=== PATIENT | male | born 1955 | race Caucasian/White ===

== ENCOUNTER 2020-12-18 09:13 | Inpatient (IN) | payer BC, SELFPAY ==
[2020-12-18] VITALS (11 sets, daily range): BP systolic 119–135; BP diastolic 79–93; PULSE 79–94; RESP 14–20; TEMP 36.4–37.1; O2SAT 90–96; BMI 34.0; BMI 33.5
--- NOTE | 2020-12-18 09:28 | EKG12_ITS ---
Test Reason : SOB Blood Pressure : / mmHG Vent. Rate : 084 BPM Atrial Rate : 084 BPM P-R Int : 140 ms QRS Dur : 084 ms QT Int : 384 ms P-R-T Axes : 035 -10 -30 degrees QTc Int : 453 ms Normal sinus rhythm Nonspecific T wave abnormality Abnormal ECG Confirmed by LIAT OZUNA, HAIDER ([id number]), city editor FOSTER JACKSON ([id number]) on 12/20/2020 9:16:13 AM Referred By: ESPINOZA/ANOOP Confirmed By:HAIDER JOSUE MD
--- NOTE | 2020-12-18 09:29 | ED.VIS.DYS ---
HPI History of Present Illness Chief Complaint: Shortness of Breath Narrative Narrative: Patient is on about day 10 of symptoms he was diagnosed with Covid, he started having some difficulty breathing yesterday and it got slightly worse today. He is denying fevers, no lower extremity edema or calf pain. He has no pleuritic component. He has no chest pain or back pain. He has a slight cough which is nonproductive. No upper airway congestion. PFSH PFSH Medical History no medical history Allergy/AdvReac Type Severity Reaction Status Date / Time amoxicillin Allergy Itching Verified 12/18/20 09:16 Social History Smoking Status: Unknown if ever smoked ROS ROS ED ROS Narrative Past medical history: Reviewed and negative Medications: None Social history: Noncontributory Review of systems: All systems negative except as indicated General: No fever. Some generalized weakness. Eyes: No visual changes ENT: No upper airway congestion, normal voice Neck: No neck pain Cardiovascular: No chest pain Respiratory: Dyspnea as in HPI Gastrointestinal: No abdominal pain, nausea vomiting or diarrhea Genitourinary: No dysuria Musculoskeletal: Denies myalgias no difficulty with ambulation Skin: No rash Neurological: No memory loss, confusion or any focal weakness Psych: No recent behavioral changes Hematologic: No easy bleeding or easy bruising EXAM Physical Exam Narrative Exam Narrative: Physical exam General: Patient appears relatively comfortable in bed. Head: Normocephalic, Atraumatic Eyes: Conjunctiva not pale ENT: Moist mucous membranes Neck: Supple, Nontender, No lymphadenopathy Cardiovascular: Regular rate, Regular rhythm Respiratory: No distress, CTA bilaterally. Normal inspiration and expiration. He is speaking in full sentences without any distress. Abdomen: Soft, Nontender, Nondistended Back: Nontender, Normal Inspection. Negative for: CVA tenderness Extremities: Nontender, No edema. No calf pain. Negative Homans Skin: Normal color, No rash Neurological: Alert, Normal Strength, Normal Sensation Psychological: Normal affect Const Vital Signs: 12/18/20 09:14 12/18/20 09:16 12/18/20 09:34 Temperature 97.6 F L 97.6 F L Temperature Source Temporal Temporal Pulse Rate 94 94 Respiratory Rate 20 H 20 H Respiratory Effort Non-Labored Short of Breath Respiratory Depth Normal Respiratory Pattern Normal Blood Pressure 119/86 H 119/86 H Blood Pressure Mean 97 97 Pulse Ox 94 94 Oxygen Delivery Method Room Air Room Air Room Air Oxygen Flow Rate (L/min) 12/18/20 10:45 12/18/20 10:47 Temperature Temperature Source Pulse Rate Respiratory Rate Respiratory Effort Respiratory Depth Respiratory Pattern Blood Pressure Blood Pressure Mean Pulse Ox 90 94 Oxygen Delivery Method Room Air Nasal Cannula Oxygen Flow Rate (L/min) 2 MDM MDM MDM Narrative Medical decision making narrative: Initially patient had a marginal pulse ox when I walked in the room, however I went to reevaluate him his pulse ox is 89%, I placed him on oxygen, I gave him Decadron and I will admit him. Lab Data Labs: Laboratory Results - last 24 hr 12/18/20 12/18/20 09:47 09:47 WBC 4.2 L RBC 3.90 L Hgb 12.1 L Hct 37.0 L MCV 94.9 H MCH 31.0 MCHC 32.7 RDW Std Deviation 51.1 H RDW Coeff of Arthur 14.6 Plt Count 132 L MPV 11.8 Immature Gran % (Auto) 0.500 Neut % (Auto) 79.8 H Lymph % (Auto) 14.0 L [place] % (Auto) 5.5 Eos % (Auto) 0.0 Baso % (Auto) 0.2 Absolute Neuts (auto) 3.4 Absolute Lymphs (auto) 0.59 L Nucleated RBC % 0 Diff Path Review May foll Sodium 131 L Potassium 3.7 Chloride 99 Carbon Dioxide 22.0 Anion Gap 10 BUN 20 H Creatinine 0.95 Estim Creat Clear Calc 77.52 Est GFR (MDRD) Af Amer 103 Est GFR (MDRD) Non-Af 85 BUN/Creatinine Ratio 21.1 H Glucose 122 H Calcium 7.9 L Total Bilirubin 0.70 AST 70 H ALT 55 Alkaline Phosphatase 98 Total Protein 6.6 Albumin 3.0 L Globulin 3.6 Albumin/Globulin Ratio 0.8 L Radiography Diagnostic Testing: Clinical Impression(s) from Imaging Studies Chest X-Ray 12/18/20 10:08 IMPRESSION: Patchy bilateral pulmonary infiltrates worse in the left lung. Electronically Signed: Quinton Fajardo MD at 10:18 EDT , Service support , Discharge Plan Triage Chief Complaint: Shortness of Breath ED Provider: Jhonatan Dasilva Dx/Rx/DC Orders Clinical Impression: COVID, Hypoxia Primary Care Provider: Care Physician,No Primary Referrals: Care Physician,No Primary [Primary Care Provider] -
[2020-12-18] MEDS: dexAMETHasone 4 MG/ML Vial 6 MG IV (09:49)
[2020-12-18 10:02] LABS: Absolute Lymphocyte Count 0.59 X10^3/uL (0.83-4.51); Absolute Neutrophil Count 3.4 X10^3/uL (2.0-7.7); Basophil# 0.01 X10^3/uL; Basophil% 0.2 % (0-1); Hemoglobin 12.1 g/dL (13.0-16.5); Lymphocyte # 0.59 X10^3/ul (0.83-4.51); Mean Corp Hgb Conc 32.7 g/dL (32-36); Mean Corpuscular Volume 94.9 fL (80-94); Mean Platelet Vol. 11.8 fl (6.2-12.0); Monocyte# 0.23 X10^3/uL; Monocyte% 5.5 % (0-10); NRBC Flagged by Analyzer 0 % (0-5); Neutrophil # 3.35 X10^3/uL (2.7-7.7); Neutrophil % 79.8 % (47-70); POSITIVE DIFFERENTIAL YES; Platelet Count 132 K/mm3 (150-450); RBC Distribution Width CV 14.6 % (11.6-14.6); RBC Distribution Width SD 51.1 fl (35.1-43.9); White Blood Count 4.2 K/mm3 (4.4-11.0)
[2020-12-18 10:05] LABS: Differential Indicated SCAN CRITERIA MET
--- NOTE | 2020-12-18 10:08 | RAD_ITS ---
STUDY: X-RAY CHEST REASON FOR EXAM: Male, 65 years old. Shortness of breath. Covid positive. TECHNIQUE: Single AP portable view of the chest. COMPARISON: None. FINDINGS: EKG electrodes are seen. Patchy bilateral pulmonary infiltrates worse in the left lung. There is no demonstrated pleural abnormality. Normal size heart. Normal mediastinum and prerna. Normal visualized pulmonary arteries. There is atherosclerotic tortuosity of the aortic arch and descending thoracic aorta. There are degenerative changes of the visualized thoracic spine. Normal visualized ribs, clavicles, and shoulders. There is no demonstrated abnormality of the visualized soft tissue structures of the upper abdomen. RAD/Chest 1 View (Portable) IMPRESSION: Patchy bilateral pulmonary infiltrates worse in the left lung. Electronically Signed: Quinton Fajardo MD at 10:18 EDT , Service support ,
[2020-12-18 10:15] LABS: ALB/GLOB Ratio 0.8 RATIO (0.9-2.4); AST(SGOT) 70 U/L (15-37); Alanine Aminotransfer ALT/SGPT 55 U/L (16-61); Alkaline Phosphatase 98 U/L (45-117); Anion Gap 10 (5-15); BUN 20 mg/dL (7-18); BUN/Creat Ratio 21.1 RATIO (10-20); Calcium,Total 7.9 mg/dL (8.5-10.1); Chloride 99 mmol/L (98-107); Creatinine, Serum 0.95 mg/dL (0.70-1.30); EST Glomerular Filtration Rate 85 mL/min (>60); Est Glom Filt Rate - Afr Amer 103 mL/min (>60); Estimated Creatinine Clearance 77.52 ml/min; Globulin 3.6 g/dL (2.2-4.2); Glucose 122 mg/dL (74-106); Potassium 3.7 mmol/L (3.5-5.1); Protein, Total 6.6 g/dL (6.4-8.2); Sodium Level 131 mmol/L (136-145)
--- NOTE | 2020-12-18 11:14 | CM.ED ---
SW Note Referral Source: Case Find Referral Reason: No Primary Care Physician (PCP) SW reviewed chart and noted that patient has no PCP. SW provided patient with list of [facility] and [facility] Physician List for reference. No other issues or concerns voiced at this time. SW remains available for any additional needs. Plan: Provided patient with PCP information Chioma FERREIRA
--- NOTE | 2020-12-18 12:03 | HP.PCM.HOS_ITS ---
HPI - General General Date of Admission: 12/18/20 Date of Service: 12/18/20 Chief Complaint: Progressive shortness of breath -ongoing for 10 days HPI Narrative JOSE PEDRO, is a 65 M who presents with above. Patient stated he started jesus ving symptoms about 10 days ago. He lives alone. He denies any fever or chills. He has loss of taste but intact smell. He has a cough which is nonproductive. He has some loose stools; has had only one today. He was diagnosed 2 days ago. PFS Medical History Smoker Medical History no medical history no medical history Home Medications NK 12/18/20 [History Last Taken Unknown] Allergy/AdvReac Type Severity Reaction Status Date / Time amoxicillin Allergy Itching Verified 12/18/20 09:16 Family History (Updated 12/18/20 @ 18:[address] Liliane Soliz MD) Mother Dementia no surgical history Social History (Updated 12/18/20 @ 18:[address] Liliane Soliz MD) household members: none housing: house Smoking Status: Current every day smoker tobacco type: cigars alcohol intake: current alcohol intake frequency: a few times a week Alcohol type: beer substance use type: does not use ROS ROS Narrative Constitutional: Reports: Malaise, Weakness, Fatigue. Denies: Anorexia, Chills, Fever, Night Sweats, Weight Change Eyes: Denies: Blurred vision, Cataracts, Conjunctivae Inflammation, Pain, Redness, Vision Change HEENT: Denies: Difficulty Hearing, Difficulty Swallowing, Head Aches, Hearing Changes, Sinus Congestion, Sinus Drainage Cardiovascular: Denies: Chest Pain, Orthopnea, Palpitations Respiratory: Denies: Cough, Shortness of breath at rest, Sputum production Gastrointestinal: Denies: Abdominal Pain, Nausea, Vomiting Genitourinary: Denies: Dysuria Musculoskeletal: Denies: Joint Pain, Joint stiffness, Joint swelling, Joint Tenderness Skin: Denies: Rash, Wounds Neurological: Denies: Numbness, Tingling, Focal weakness Vital Signs Vital Signs Vital Signs: 12/18/20 09:14 12/18/20 09:16 12/18/20 09:34 Temperature 97.6 F L 97.6 F L Temperature Source Temporal Temporal Pulse Rate 94 94 Respiratory Rate 20 H 20 H Respiratory Effort Non-Labored Short of Breath Respiratory Depth Normal Respiratory Pattern Normal Blood Pressure 119/86 H 119/86 H Blood Pressure Mean 97 97 Pulse Ox 94 94 Oxygen Delivery Method Room Air Room Air Room Air Oxygen Flow Rate (L/min) 12/18/20 10:45 12/18/20 10:47 12/18/20 12:00 Temperature Temperature Source Pulse Rate 81 Respiratory Rate 14 Respiratory Effort Respiratory Depth Respiratory Pattern Blood Pressure 126/83 H Blood Pressure Mean 97 Pulse Ox 90 94 92 Oxygen Delivery Method Room Air Nasal Cannula Room Air Oxygen Flow Rate (L/min) 2 Weight Weight: 104.326 kg Body Mass Index (BMI) 34.0 Physical Exam Narrative Physical exam: General: Alert, Oriented x3, Cooperative, No apparent distress, Well developed, on 2 L of oxygen HEENT: Atraumatic Oral: Moist Mucosa Neck: Supple Lungs: Diminished to auscultation Cardiovascular: HS I+II, regular, no murmurs Abdomen: Bowel Sounds Present, Soft, Non Tender Extremities: No edema Skin: No rashes, No breakdown Neurological: Grossly intact Psych/Mental Status: Appropriate Results Lab / Micro Data Result Diagrams: 12/18/20 09:47 12/18/20 09:47 Labs: Laboratory Results - last 24 hr 12/18/20 09:47: WBC 4.2 L, RBC 3.90 L, Hgb 12.1 L, Hct 37.0 L, MCV 94.9 H, MCH 31.0, MCHC 32.7, RDW Std Deviation 51.1 H, RDW Coeff of Arthur 14.6, Plt Count 132 L, MPV 11.8, Immature Gran % (Auto) 0.500, Neut % (Auto) 79.8 H, Lymph % (Auto) 14.0 L, [place] % (Auto) 5.5, Eos % (Auto) 0.0, Baso % (Auto) 0.2, Absolute Neuts (auto) 3.4, Absolute Lymphs (auto) 0.59 L, Nucleated RBC % 0, Diff Path Review July12/18/20 09:47: Sodium 131 L, Potassium 3.7, Chloride 99, Carbon Dioxide 22.0, Anion Gap 10, BUN 20 H, Creatinine 0.95, Estim Creat Clear Calc 77.52, Est GFR (MDRD) Af Amer 103, Est GFR (MDRD) Non-Af 85, BUN/Creatinine Ratio 21.1 H, Glucose 122 H, Calcium 7.9 L, Total Bilirubin 0.70, AST 70 H, ALT 55, Alkaline Phosphatase 98, Total Protein 6.6, Albumin 3.0 L, Globulin 3.6, Albumin/Globulin Ratio 0.8 L Radiology Impression Chest X-Ray 12/18/20 10:08 IMPRESSION: Patchy bilateral pulmonary infiltrates worse in the left lung. Electronically Signed: Quinton Fajardo MD at 10:18 EDT , Service support , Assessment & Plan Assessment/Plan (1) COVID: (2) Hypoxia: PLAN: 1. Acute hypoxic respiratory insufficiency secondary to acute COVID-19 pneumonia Chest x-ray showed patchy bilateral pulmonary infiltrates, worse in the left lung Symptoms started about 10 days ago Start on IV Decadron in the ED, will continue on p.o. Decadron Would also start patient on remdesivir Encourage use of incentive spirometer 2. Elevated D-dimer, will start on empiric Lovenox We will get CTA of the chest if patient continues to remain stable Charges/Coding Visit Charges Inpatient E&M: 06413 Init Hosp L3
--- NOTE | 2020-12-18 12:03 | PCM.PN.HOSP ---
Objective Data Objective Data Vital Signs: Vital Signs Temp Pulse Resp BP Pulse Ox 97.6 F L 81 14 126/83 H 92 12/18/20 09:16 12/18/20 12:00 12/18/20 12:00 12/18/20 12:00 12/18/20 12:00 Oxygen Flow Rate (L/min) 2 Oxygen Delivery Method Room Air Weight: 104.326 kg Body Mass Index (BMI) 34.0 Lab / Micro Data Result Diagrams: 12/18/20 09:47 12/18/20 09:47 Labs: Laboratory Results - last 24 hr 12/18/20 09:47: WBC 4.2 L, RBC 3.90 L, Hgb 12.1 L, Hct 37.0 L, MCV 94.9 H, MCH 31.0, MCHC 32.7, RDW Std Deviation 51.1 H, RDW Coeff of Arthur 14.6, Plt Count 132 L, MPV 11.8, Immature Gran % (Auto) 0.500, Neut % (Auto) 79.8 H, Lymph % (Auto) 14.0 L, [place] % (Auto) 5.5, Eos % (Auto) 0.0, Baso % (Auto) 0.2, Absolute Neuts (auto) 3.4, Absolute Lymphs (auto) 0.59 L, Nucleated RBC % 0, Diff Path Review July12/18/20 09:47: Sodium 131 L, Potassium 3.7, Chloride 99, Carbon Dioxide 22.0, Anion Gap 10, BUN 20 H, Creatinine 0.95, Estim Creat Clear Calc 77.52, Est GFR (MDRD) Af Amer 103, Est GFR (MDRD) Non-Af 85, BUN/Creatinine Ratio 21.1 H, Glucose 122 H, Calcium 7.9 L, Total Bilirubin 0.70, AST 70 H, ALT 55, Alkaline Phosphatase 98, Total Protein 6.6, Albumin 3.0 L, Globulin 3.6, Albumin/Globulin Ratio 0.8 L Radiography Diagnostic Testing: Radiology Impression Chest X-Ray 12/18/20 10:08 IMPRESSION: Patchy bilateral pulmonary infiltrates worse in the left lung. Electronically Signed: Quinton Fajardo MD at 10:18 EDT , Service support ,
[2020-12-18 13:21] LABS: Pathologist Review Reviewed
--- NOTE | 2020-12-18 13:27 | PCS.PANDOC ---
PANDEMIC DOCUMENTATION INITIATED: Date: 10/23/2020 Time: 190
[2020-12-18 13:41] LABS: BNP,B-Type NATRIURETIC PEPTIDE 23.1 pg/mL (0-100)
[2020-12-18 13:54] LABS: Procalcitonin 0.23 ng/mL (0.00-0.09)
[2020-12-18] MEDS: Enoxaparin 100 MG/ML Syringe SC (23:00)
[2020-12-18] MEDS: guaiFENesin 10 ML UDC (200MG/10ML) 20 ML PO (23:00)
[2020-12-18] MEDS: 0.9% Saline Lock 10 ML Syringe IV (23:00)
[2020-12-19] VITALS (7 sets, daily range): BP systolic 121–125; BP diastolic 69–78; PULSE 76–86; RESP 16–18; TEMP 36.9–37.2; O2SAT 92–94
[2020-12-19] MEDS: Acetaminophen 325 MG Tablet 650 MG PO ×3 (03:08→22:22)
[2020-12-19 06:34] LABS: Absolute Lymphocyte Count 0.86 X10^3/uL (0.83-4.51); Absolute Neutrophil Count 4.4 X10^3/uL (2.0-7.7); Basophil# 0.01 X10^3/uL; Basophil% 0.2 % (0-1); Hematocrit 37.6 % (40-54); Hemoglobin 12.3 g/dL (13.0-16.5); Lymphocyte # 0.86 X10^3/ul (0.83-4.51); Lymphocyte % 15.3 % (19-41); Mean Corp Hgb Conc 32.7 g/dL (32-36); Mean Corpuscular Hgb 31.1 pg (27.0-32.0); Mean Corpuscular Volume 94.9 fL (80-94); Mean Platelet Vol. 11.4 fl (6.2-12.0); Monocyte# 0.28 X10^3/uL; NRBC Flagged by Analyzer 0 % (0-5); Neutrophil # 4.43 X10^3/uL (2.7-7.7); Platelet Count 163 K/mm3 (150-450); RBC Distribution Width CV 14.5 % (11.6-14.6); Red Blood Count 3.96 M/mm3 (4.6-6.2); White Blood Count 5.6 K/mm3 (4.4-11.0)
[2020-12-19 07:03] LABS: ALB/GLOB Ratio 0.8 RATIO (0.9-2.4); AST(SGOT) 81 U/L (15-37); Alanine Aminotransfer ALT/SGPT 67 U/L (16-61); Albumin, Serum 2.8 g/dL (3.2-5.0); Alkaline Phosphatase 97 U/L (45-117); Anion Gap 11 (5-15); BUN 22 mg/dL (7-18); BUN/Creat Ratio 21.8 RATIO (10-20); Calcium,Total 8.1 mg/dL (8.5-10.1); Chloride 97 mmol/L (98-107); Creatinine, Serum 1.01 mg/dL (0.70-1.30); EST Glomerular Filtration Rate 79 mL/min (>60); Est Glom Filt Rate - Afr Amer 95 mL/min (>60); Estimated Creatinine Clearance 72.92 ml/min; Globulin 3.7 g/dL (2.2-4.2); Glucose 123 mg/dL (74-106); Potassium 3.7 mmol/L (3.5-5.1); Protein, Total 6.5 g/dL (6.4-8.2); Sodium Level 132 mmol/L (136-145)
[2020-12-19] MEDS: dexAMETHasone 4 MG Tablet 6 MG PO (08:35)
[2020-12-19] MEDS: Enoxaparin 100 MG/ML Syringe SC ×2 (08:35→22:22)
[2020-12-19] MEDS: 0.9% Saline Lock 10 ML Syringe IV ×3 (08:37→22:23)
[2020-12-19] MEDS: guaiFENesin 10 ML UDC (200MG/10ML) 20 ML PO ×2 (08:55→22:22)
--- NOTE | 2020-12-19 12:10 | CASEMGMT ---
JENNIFER CEVALLOS Assessment: Face to Face with pt for initial transition planning/care coordination assessment. JENNIFER CEVALLOS introduced self and role at [facility], pt voices understanding and consents to assessment. Pt is A/O x4 and answers all questions appropriately at this time. Pt sitting up in chair with O2 on in no distress. Care providers, pharmacy, and demographics verified/updated. Admitting Dx: Resp failure, COVID 19 PCP: Pt had who has retired. Pt states he has not yet obtained a new PCP. Provided him with a pamphlet of local healthcare providers. Specialists:Pt denies Preferred Pharmacy: [facility] Insurance: [employer] Prescription Benefit: yes LW/HPOA: Pt denies having a LW/DPOA and denies need for info regarding AD. LNOK: Jason Meza, son Living Arrangements: Pt lives alone in a single story house with 13 steps to enter without a rail. Pt reports being I in ADL's and denies concerns at home. Transportation: Pt drives self and denies concerns with transportation. DME/HHC/SNF: Pt denies having any DME, hx of HHC or SNF stays. 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 Pt reports drinking two alcohol drinks per week and normally smokes a cigar a day. Pt denies use of street drugs or illegal drugs. Pt reports his mother just passed this last week and the planning is in the works. Notified Gracie KIDD of this. Pt was first tested for COVID at [facility] urgent care. Pt states he has family who can provide him with groceries and supplies. Provided pt with a list of local in network DME providers should he need O2 upon dc, pt has no preference. Pt states no concerns with going home at time of dc. Pt states no further concerns/needs. CM to follow. Advised pt to ask CM if any further question/concerns/needs arise, voices understanding. Pt Goal: Home Plan: Home, follow for O2.
--- NOTE | 2020-12-19 12:15 | PCM.PN.HOSP ---
Subjective Subjective Follow-up on hypoxia/acute COVID-19 pneumonia: Patient was seen and examined. His oxygen requirements has worsened. He is currently on 5 L of oxygen. He denied any diarrhea. Objective Data Objective Data Vital Signs: Vital Signs Temp Pulse Resp BP Pulse Ox 98.5 F 80 16 121/69 H 92 12/19/20 08:33 12/19/20 08:33 12/19/20 08:33 12/19/20 08:33 12/19/20 09:45 Oxygen Flow Rate (L/min) 5 Oxygen Delivery Method Nasal Cannula Weight: 103 kg Body Mass Index (BMI) 33.5 Intake & Output: Intake and Output for Last 24 Hours 12/17/20 12/18/20 12/19/20 23:59 23:59 23:59 Intake Total 650 / 650 Balance 650 / 650 Lab / Micro Data Result Diagrams: 12/19/20 06:08 12/19/20 06:08 Labs: Laboratory Results - last 24 hr 12/18/20 09:47: Diff Path Review Reviewed 12/18/20 09:47: D-Dimer Quant (PE/DVT) 0.80 H* 12/18/20 09:47: B-Natriuretic Peptide 23.1 12/18/20 09:47: Procalcitonin 0.23 H 12/19/20 06:08: WBC 5.6, RBC 3.96 L, Hgb 12.3 L, Hct 37.6 L, MCV 94.9 H, MCH 31.1, MCHC 32.7, RDW Std Deviation 51.0 H, RDW Coeff of Arthur 14.5, Plt Count 163, MPV 11.4, Immature Gran % (Auto) 0.500, Neut % (Auto) 79.0 H, Lymph % (Auto) 15.3 L, [place] % (Auto) 5.0, Eos % (Auto) 0.0, Baso % (Auto) 0.2, Absolute Neuts (auto) 4.4, Absolute Lymphs (auto) 0.86, Nucleated RBC % 0 12/19/20 06:08: Sodium 132 L, Potassium 3.7, Chloride 97 L, Carbon Dioxide 24.0, Anion Gap 11, BUN 22 H, Creatinine 1.01, Estim Creat Clear Calc 72.92, Est GFR (MDRD) Af Amer 95, Est GFR (MDRD) Non-Af 79, BUN/Creatinine Ratio 21.8 H, Glucose 123 H, Calcium 8.1 L, Total Bilirubin 0.50, AST 81 H, ALT 67 H, Alkaline Phosphatase 97, Total Protein 6.5, Albumin 2.8 L, Globulin 3.7, Albumin/Globulin Ratio 0.8 L Micro: Microbiology 12/18/20 18:00 Urine, Clean Catch Legionella Antigen - Final 12/18/20 18:00 Urine, Clean Catch Streptococcus pneumoniae Antigen (M - Final 12/18/20 18:00 Nasal Secretion SARS-CoV-2 Antigen (Rapid) - Final 12/18/20 15:44 Mucosa - Nasopharyngeal Respiratory Panel (PCR) - Final Physical Exam Narrative Physical exam: General: Alert, Oriented x3, Cooperative, No apparent distress, Well developed, on 5 L of oxygen HEENT: Atraumatic Oral: Moist Mucosa Neck: Supple Lungs: Diminished to auscultation Cardiovascular: HS I+II, regular, no murmurs Abdomen: Bowel Sounds Present, Soft, Non Tender Extremities: No edema Assessment & Plan Assessment/Plan (1) COVID: (2) Hypoxia: PLAN: 1. Acute hypoxic respiratory insufficiency secondary to acute COVID-19 pneumonia, slightly worsening Chest x-ray showed patchy bilateral pulmonary infiltrates, worse in the left lung Symptoms started about 10 days ago Continue on Decadron and remdesivir Encourage use of incentive spirometer 2. Elevated D-dimer, continue on empiric Lovenox W get CTA of the chest if patient continues to remain stable Charges/Coding Visit Charges Inpatient E&M: 48247 Subs Hosp L3
[2020-12-19] MEDS: Furosemide 40 MG/4 ML Vial IV (14:39)
--- NOTE | 2020-12-19 16:04 | CASEMGMT ---
Social Work Note SW aware that pt's mother recently last week. SW will attempt to meet with pt tomorrow to provide support. Lexis Bar HOLISTIC PULSER, CONCRETE BLOCK MOLDER
[2020-12-20] VITALS (8 sets, daily range): BP systolic 112–145; BP diastolic 74–82; PULSE 69–77; RESP 18–20; TEMP 36.5–36.9; O2SAT 92–95
[2020-12-20] MEDS: Acetaminophen 325 MG Tablet 650 MG PO ×2 (08:10→21:51)
[2020-12-20] MEDS: dexAMETHasone 4 MG Tablet 6 MG PO (08:10)
--- NOTE | 2020-12-20 11:42 | CASEMGMT ---
Social Work Note SW in to speak with pt. SW introduced self and role at [facility]. Pt confirms that his mother recently , states the is Friday. Pt states that his mother had Alzheimer, states he is handling her ok. SW offered support to pt. Pt states that he has a supportive family. SW offered to provide pt with bereavement/grief counseling resources and pt denied. Pt denied additional needs or concerns at this time. Lexis Bar WOOD TECHNOLOGIST, TABLET MAKING MACHINE OPERATOR
[2020-12-20] MEDS: Enoxaparin 100 MG/ML Syringe SC ×2 (11:52→21:52)
--- NOTE | 2020-12-20 12:26 | PCM.PN.HOSP ---
Subjective Subjective Follow-up on hypoxia/acute COVID-19 pneumonia: Patient was seen and examined. Denied any new complaint. He remains on 5 L of oxygen. Objective Data Objective Data Vital Signs: Vital Signs Temp Pulse Resp BP Pulse Ox 98.1 F 69 18 112/74 94 12/20/20 08:14 12/20/20 11:59 12/20/20 08:14 12/20/20 08:14 12/20/20 11:59 Oxygen Flow Rate (L/min) 5 Oxygen Delivery Method Nasal Cannula Weight: 102.2 kg Body Mass Index (BMI) 33.5 Intake & Output: Intake and Output for Last 24 Hours 12/18/20 12/19/20 12/20/20 23:59 23:59 23:59 Intake Total 650 / 850 900 / 900 Balance 650 / 850 900 / 900 Lab / Micro Data Result Diagrams: 12/19/20 06:08 12/19/20 06:08 Micro: Microbiology 12/18/20 18:00 Urine, Clean Catch Legionella Antigen - Final 12/18/20 18:00 Urine, Clean Catch Streptococcus pneumoniae Antigen (M - Final 12/18/20 18:00 Nasal Secretion SARS-CoV-2 Antigen (Rapid) - Final 12/18/20 15:44 Mucosa - Nasopharyngeal Respiratory Panel (PCR) - Final Physical Exam Narrative Physical exam: General: Alert, Oriented x3, Cooperative, No apparent distress, Well developed, on 5 L of oxygen HEENT: Atraumatic Oral: Moist Mucosa Neck: Supple Lungs: Diminished to auscultation Cardiovascular: HS I+II, regular, no murmurs Abdomen: Bowel Sounds Present, Soft, Non Tender Extremities: No edema Assessment & Plan Assessment/Plan (1) COVID: (2) Hypoxia: PLAN: 1. Acute hypoxic respiratory insufficiency secondary to acute COVID-19 pneumonia, slightly worsening Chest x-ray showed patchy bilateral pulmonary infiltrates, worse in the left lung Symptoms started about 10 days ago Continue on Decadron and remdesivir Encourage use of incentive spirometer 2. Elevated D-dimer, high suspicion for acute PE, continue on empiric Lovenox Will get CTA of chest Charges/Coding Visit Charges Inpatient E&M: 93690 Subs Hosp L2
--- NOTE | 2020-12-20 14:05 | CT_ITS ---
STUDY: CTA CHEST REASON FOR EXAM: Male, 65 years old. Elevated d-dimer. 10 day history of shortness of breath. RADIATION DOSAGE (If Supplied By Facility): CTDIvol = ( 13 ) mGy, DLP = ( 431.66 ) mGycm TECHNIQUE: The examination was performed with the intravenous administration of IV 100mL Isovue-370. Post-processing of the angiographic images was performed, with multiplanar reformation and 3D reconstruction. Individualized dose optimization techniques were used for this CT. COMPARISON: Comparison is made with prior chest radiograph dated 12/18/2020. FINDINGS: Normal enhancement of the main pulmonary artery and right and left pulmonary arteries. Normal enhancement of the bilateral peripheral pulmonary arteries. There is no demonstrated pulmonary embolism. Normal thoracic aorta and visualized great vessels. There is no demonstrated aortic dissection. Normal heart and pericardium. There are visualized mediastinal lymph nodes, which are within normal size limits, and with normal morphology. Normal hilar regions. Normal visualized trachea and bronchi. The lungs are well expanded. Bilateral pulmonary infiltrates worse in the right hemithorax. Normal pleura. Normal chest wall structures. There are degenerative changes of thoracic spine. Small hiatal hernia. CT/CTA Chest W/WO Contrast IMPRESSION: Diffuse bilateral pulmonary infiltrates worse in the right hemithorax. No evidence of pulmonary embolism. Electronically Signed: Quinton Fajardo MD at 15:09 EDT , Service support ,
[2020-12-20] MEDS: 0.9% Saline Lock 10 ML Syringe IV (21:52)
[2020-12-20] MEDS: Mag Hydrox/Al Hydrox/Simeth 30 ML UDC PO (21:52)
[2020-12-21 03:42] VITALS: BP 113/72; PULSE 77; RESP 20; TEMP 36.5; O2SAT 92
[2020-12-21 03:44] VITALS: O2SAT 92
[2020-12-21 07:46] LABS: Absolute Lymphocyte Count 0.84 X10^3/uL (0.83-4.51); Absolute Neutrophil Count 4.8 X10^3/uL (2.0-7.7); Hematocrit 40.7 % (40-54); Hemoglobin 12.9 g/dL (13.0-16.5); Lymphocyte # 0.84 X10^3/ul (0.83-4.51); Lymphocyte % 13.9 % (19-41); Mean Corp Hgb Conc 31.7 g/dL (32-36); Mean Corpuscular Hgb 31.1 pg (27.0-32.0); Mean Corpuscular Volume 98.1 fL (80-94); Mean Platelet Vol. 10.7 fl (6.2-12.0); Monocyte# 0.33 X10^3/uL; Monocyte% 5.4 % (0-10); NRBC Flagged by Analyzer 0 % (0-5); Neutrophil # 4.83 X10^3/uL (2.7-7.7); Neutrophil % 79.7 % (47-70); POSITIVE MORPHOLOGY YES; Platelet Count 242 K/mm3 (150-450); RBC Distribution Width CV 14.8 % (11.6-14.6); RBC Distribution Width SD 53.8 fl (35.1-43.9); Red Blood Count 4.15 M/mm3 (4.6-6.2); White Blood Count 6.1 K/mm3 (4.4-11.0)
[2020-12-21 07:50] LABS: Differential Indicated SCAN CRITERIA MET
[2020-12-21 08:08] LABS: ALB/GLOB Ratio 0.7 RATIO (0.9-2.4); AST(SGOT) 80 U/L (15-37); Alanine Aminotransfer ALT/SGPT 118 U/L (16-61); Albumin, Serum 2.7 g/dL (3.2-5.0); Alkaline Phosphatase 141 U/L (45-117); Anion Gap 7 (5-15); BUN 25 mg/dL (7-18); BUN/Creat Ratio 30.7 RATIO (10-20); Calcium,Total 8.5 mg/dL (8.5-10.1); Chloride 101 mmol/L (98-107); Creatinine, Serum 0.81 mg/dL (0.70-1.30); EST Glomerular Filtration Rate 101 mL/min (>60); Est Glom Filt Rate - Afr Amer 122 mL/min (>60); Estimated Creatinine Clearance 90.92 ml/min; Globulin 3.9 g/dL (2.2-4.2); Glucose 116 mg/dL (74-106); Potassium 4.4 mmol/L (3.5-5.1); Protein, Total 6.6 g/dL (6.4-8.2); Sodium Level 136 mmol/L (136-145)
[2020-12-21 08:19] VITALS: BP 115/81; PULSE 75; RESP 20; TEMP 36.4; O2SAT 94
[2020-12-21] MEDS: dexAMETHasone 4 MG Tablet 6 MG PO (08:23)
[2020-12-21 08:25] LABS: Atypical Lymphocyte RARE %
[2020-12-21] MEDS: Enoxaparin 100 MG/ML Syringe SC (11:21)
[2020-12-21] MEDS: Acetaminophen 325 MG Tablet 650 MG PO ×2 (11:22→20:34)
[2020-12-21] MEDS: Furosemide 40 MG/4 ML Vial IV (12:35)
[2020-12-21] MEDS: 0.9% Saline Lock 10 ML Syringe IV (12:36)
--- NOTE | 2020-12-21 13:37 | PN.HOSP_ITS ---
Subjective Subjective Patient was seen and examined. He is currently on 7 L of oxygen. Denies any fever or chills. Objective Data Objective Data Vital Signs: Vital Signs Temp Pulse Resp BP Pulse Ox 97.6 F L 75 20 H 115/81 H 94 12/21/20 08:19 12/21/20 08:19 12/21/20 08:19 12/21/20 08:19 12/21/20 08:19 Oxygen Flow Rate (L/min) 7 Oxygen Delivery Method Nasal Cannula Weight: 101.2 kg Body Mass Index (BMI) 33.5 Intake & Output: Intake and Output for Last 24 Hours 12/19/20 12/20/20 12/21/20 23:59 23:59 23:59 Intake Total 650 / 850 1650 / 1950 850 / 850 Balance 650 / 850 1650 / 1950 850 / 850 Lab / Micro Data Result Diagrams: 12/21/20 07:05 12/21/20 07:05 Labs: Laboratory Results - last 24 hr 12/21/20 07:05: WBC 6.1, RBC 4.15 L, Hgb 12.9 L, Hct 40.7, MCV 98.1 H, MCH 31.1, MCHC 31.7 L, RDW Std Deviation 53.8 H, RDW Coeff of Arthur 14.8 H, Plt Count 242, MPV 10.7, Immature Gran % (Auto) 1.000 H, Neut % (Auto) 79.7 H, Lymph % (Auto) 13.9 L, [place] % (Auto) 5.4, Eos % (Auto) 0.0, Baso % (Auto) 0.0, Absolute Neuts (auto) 4.8, Absolute Lymphs (auto) 0.84, Nucleated RBC % 0, Atypical Lymphocytes RARE 12/21/20 07:05: Sodium 136, Potassium 4.4, Chloride 101, Carbon Dioxide 28.0, Anion Gap 7, BUN 25 H, Creatinine 0.81, Estim Creat Clear Calc 90.92, Est GFR (MDRD) Af Amer 122, Est GFR (MDRD) Non-Af 101, BUN/Creatinine Ratio 30.7 H, Glucose 116 H, Calcium 8.5, Total Bilirubin 0.40, AST 80 H, ALT 118 H, Alkaline Phosphatase 141 H, Total Protein 6.6, Albumin 2.7 L, Globulin 3.9, Albumin/Globulin Ratio 0.7 L Micro: Microbiology 12/18/20 18:00 Urine, Clean Catch Legionella Antigen - Final 12/18/20 18:00 Urine, Clean Catch Streptococcus pneumoniae Antigen (M - Final 12/18/20 18:00 Nasal Secretion SARS-CoV-2 Antigen (Rapid) - Final 12/18/20 15:44 Mucosa - Nasopharyngeal Respiratory Panel (PCR) - Final Radiography Diagnostic Testing: Radiology Impression Chest CTA 12/20/20 14:05 IMPRESSION: Diffuse bilateral pulmonary infiltrates worse in the right hemithorax. No evidence of pulmonary embolism. Electronically Signed: Quinton Fajardo MD at 15:09 EDT , Service support , Physical Exam Narrative Physical exam: General: Alert, Oriented x3, Cooperative, No apparent distress, Well developed, on 7 L of oxygen HEENT: Atraumatic Oral: Moist Mucosa Neck: Supple Lungs: Diminished to auscultation Cardiovascular: HS I+II, regular, no murmurs Abdomen: Bowel Sounds Present, Soft, Non Tender Extremities: No edema Assessment & Plan Assessment/Plan (1) COVID: (2) Hypoxia: PLAN: 1. Acute hypoxic respiratory insufficiency secondary to acute COVID-19 pneumonia, slightly worsening Patient is currently on 7 L of oxygen Chest x-ray showed patchy bilateral pulmonary infiltrates, worse in the left lung Symptoms started about 10 days ago Continue on Decadron and remdesivir Encourage use of incentive spirometer 2. Elevated D-dimer, acute PE ruled out, continue on Lovenox 30 mg twice daily Charges/Coding Visit Charges Inpatient E&M: 49121 Subs Hosp L3
[2020-12-21 15:32] VITALS: BP 118/82; PULSE 78; RESP 19; TEMP 36.6; O2SAT 95
[2020-12-21 20:29] VITALS: BP 131/83; PULSE 82; RESP 18; TEMP 36.6; O2SAT 92
[2020-12-21 20:30] VITALS: O2SAT 92
[2020-12-21] MEDS: Enoxaparin 30 MG/0.3 ML Syringe SC (20:34)
[2020-12-21] MEDS: Mag Hydrox/Al Hydrox/Simeth 30 ML UDC PO (20:34)
[2020-12-22] VITALS (14 sets, daily range): BP systolic 115–128; BP diastolic 70–89; PULSE 56–90; RESP 18; TEMP 36.4–36.6; O2SAT 77–99
[2020-12-22] MEDS: guaiFENesin 10 ML UDC (200MG/10ML) 20 ML PO (03:08)
[2020-12-22 06:42] LABS: Absolute Lymphocyte Count 0.94 X10^3/uL (0.83-4.51); Absolute Neutrophil Count 5.2 X10^3/uL (2.0-7.7); Basophil# 0.02 X10^3/uL; Basophil% 0.3 % (0-1); Hematocrit 39.9 % (40-54); Hemoglobin 12.8 g/dL (13.0-16.5); Lymphocyte # 0.94 X10^3/ul (0.83-4.51); Lymphocyte % 13.9 % (19-41); Mean Corp Hgb Conc 32.1 g/dL (32-36); Mean Corpuscular Hgb 30.9 pg (27.0-32.0); Mean Corpuscular Volume 96.4 fL (80-94); Monocyte# 0.51 X10^3/uL; Monocyte% 7.5 % (0-10); NRBC Flagged by Analyzer 0.3 % (0-5); Neutrophil # 5.19 X10^3/uL (2.7-7.7); Neutrophil % 76.8 % (47-70); POSITIVE MORPHOLOGY YES; Platelet Count 260 K/mm3 (150-450); RBC Distribution Width CV 14.6 % (11.6-14.6); RBC Distribution Width SD 52.6 fl (35.1-43.9); Red Blood Count 4.14 M/mm3 (4.6-6.2); White Blood Count 6.8 K/mm3 (4.4-11.0)
[2020-12-22 06:44] LABS: Differential Indicated SCAN CRITERIA MET
--- NOTE | 2020-12-22 06:54 | NURSING ---
pts o2 on monitor was reading 77% on 9L hiflo. this RN went into pts room and pt states that my nose keeps running and I keep taking my oxygen out to blow my nose. pt placed on 10L and pt only came up to 83%. pt educated to use IS and if it is more comfortable, pt can mouth breath and place cannula in mouth. pt acknowledged but did not wish to do that right now. pts o2 bumped to 12L and pt is 89%. pt educated to lay back in bed and try to rest so oxygen levels can come up. pt acknowledged and agreeable at this time. denies additional needs at this time. will cont to monitor
[2020-12-22 07:01] LABS: ALB/GLOB Ratio 0.7 RATIO (0.9-2.4); AST(SGOT) 93 U/L (15-37); Alanine Aminotransfer ALT/SGPT 138 U/L (16-61); Albumin, Serum 2.7 g/dL (3.2-5.0); Alkaline Phosphatase 142 U/L (45-117); Anion Gap 6 (5-15); BUN 29 mg/dL (7-18); Calcium,Total 8.5 mg/dL (8.5-10.1); Chloride 101 mmol/L (98-107); EST Glomerular Filtration Rate 89 mL/min (>60); Est Glom Filt Rate - Afr Amer 108 mL/min (>60); Estimated Creatinine Clearance 81.83 ml/min; Globulin 3.8 g/dL (2.2-4.2); Glucose 127 mg/dL (74-106); Potassium 4.3 mmol/L (3.5-5.1); Protein, Total 6.5 g/dL (6.4-8.2); Sodium Level 134 mmol/L (136-145)
[2020-12-22 07:15] LABS: Atypical Lymphocyte RARE %; Differential Comment SCANNED
[2020-12-22] MEDS: Enoxaparin 30 MG/0.3 ML Syringe SC ×2 (08:45→21:50)
[2020-12-22] MEDS: dexAMETHasone 4 MG Tablet 6 MG PO (08:45)
[2020-12-22] MEDS: Furosemide 40 MG/4 ML Vial IV (11:40)
--- NOTE | 2020-12-22 13:45 | EX.PCM.CONCC ---
Assessment & Plan Assessment/Plan (1) COVID: (2) Acute respiratory failure with hypoxia: PLAN: RECOMMENDATIONS: 1. Diuresis as tolerated 2. Encourage incentive spirometer, Acapella and prone positioning 3. Complete courses of remdesivir (12/22/2020) and Decadron (12/29/2020) therapy 4. Continue prophylactic dose anticoagulation 5. Obtain sputum culture IMPRESSIONS: 1. Acute hypoxic respiratory failure secondary to COVID-19 pneumonia Patient with progression of disease. It is unclear if this is secondary to worsening secondary to another process or COVID-19. Agree with diuretics as ordered. Patient should be continued on Remdesivir and Decadron therapy. Stressed to the patient the importance of using incentive spirometer, Acapella and prone positioning. Continue to use diuretics as necessary to keep volume neutral. Will obtain a sputum culture to rule out other secondary causes. Patient's liver enzymes are slightly elevated, but not enough to discontinue therapy. 2. Obesity/nonvaccinated status/poor primary care Complicates care, management, recovery and prognosis. Patient does not have any past medical history, but it is unclear if this is secondary to a lack of primary care follow-up. Patient's blood glucose is slightly elevated, but this may be secondary to steroid therapy, not diabetes. Patient should likely establish with a PCP on discharge. HPI Consult Data Date of Consult: 12/22/20 HPI Narrative HPI Narrative: JOSE PEDRO is a 65 M, with no reported past medical history, who presents to [facility] on 12/18/2020 secondary to worsening shortness of breath. Patient was reportedly on day 10 of symptoms of COVID-19. Patient denied any recent fever, lower extremity ROCHELLE or calf pain. Patient did not have any chest pain or back pain. Patient did report a cough that was nonproductive and denied any airway congestion. In the ER, patient was afebrile, but tachypneic at 20 breaths/min. Patient was saturating well at 94% on room air initially. Patient did require 2 L nasal cannula by the end of his ER visit. Patient was noted to have a white blood cell count of 4.2, hemoglobin of 12.1, normal renal function, but slightly elevated glucose at 122. Chest x-ray showed bilateral pulmonary infiltrates. Given patient required supplemental oxygen, patient was given Decadron and admitted to the hospital. Patient has done okay over the course of his hospitalization. Patient was initiated on Remdesivir and Decadron therapy. However, over the course of the hospitalization patient has required more supplemental oxygen, so a pulmonary consult was obtained. Patient does report an extensive history of smoking cigars. Patient has never been seen by a equipment cleaner previously. Patient has never had a pulmonary function test, need for supplemental oxygen or inhalers. Patient does not believe that he is significantly worse compared to previous, but is frustrated that he is not getting better. Patient denies any current chest pain, abdominal pain, nausea or vomiting. No lower extremity edema has been reported. Patient has been having polyuria but attributes this to Lasix. Review of systems otherwise negative from a constitutional, HEENT, respiratory, cardiovascular, GI, genitourinary, musculoskeletal, skin, neurologic, psychiatric and hematologic system unless stated above. PFSH Medical History Smoker Medical History no medical history Home Medications NK 12/18/20 [History Last Taken Unknown] Allergy/AdvReac Type Severity Reaction Status Date / Time amoxicillin Allergy Itching Verified 12/18/20 09:16 Family History (Updated 12/18/20 @ 18:[address] Liliane Soliz MD) Mother Dementia Surgical History no surgical history Social History (Updated 12/18/20 @ 18:[address] Liliane Soliz MD) household members: none housing: house Smoking Status: Current every day smoker tobacco type: cigars alcohol intake: current alcohol intake frequency: a few times a week Alcohol type: beer substance use type: does not use ROS ROS Narrative See HPI Physical Exam Const alert and oriented x3 Constitutional Narrative: Mild conversational dyspnea General Appearance: cooperative and well developed HEENT normocephalic, head/scalp atraumatic and moist oral mucous membranes Eyes PERRL and EOMs intact bilaterally Neck full ROM and no lymphadenopathy Chest inspection of chest normal Resp no use of accessory muscles Auscultation: rales bilateral base and diminished lung sounds; Negative for rhonchi or wheezes Percussion: Negative for dullness Cardio regular rate, regular rhythm, S1 normal heart sound, S2 normal heart sound, no murmurs, no rub and no gallops GI normal to inspection, nondistended, normoactive bowel sounds no CVA tenderness Extremity no clubbing, cyanosis or edema Skin no rashes or lesions noted Neuro oriented x3, CN's II-XII intact bilaterally, moves all extremities and no focal motor deficits Psych cooperative and affect normal Lab / Micro Data Result Diagrams: 12/22/20 06:14 12/22/20 06:14 Labs: Laboratory Results - last 24 hr 12/22/20 06:14: WBC 6.8, RBC 4.14 L, Hgb 12.8 L, Hct 39.9 L, MCV 96.4 H, MCH 30.9, MCHC 32.1, RDW Std Deviation 52.6 H, RDW Coeff of Arthur 14.6, Plt Count 260, MPV 10.0, Immature Gran % (Auto) 1.500 H, Neut % (Auto) 76.8 H, Lymph % (Auto) 13.9 L, [place] % (Auto) 7.5, Eos % (Auto) 0.0, Baso % (Auto) 0.3, Absolute Neuts (auto) 5.2, Absolute Lymphs (auto) 0.94, Nucleated RBC % 0.3, Differential Comment SCANNED, Atypical Lymphocytes RARE 12/22/20 06:14: Sodium 134 L, Potassium 4.3, Chloride 101, Carbon Dioxide 27.0, Anion Gap 6, BUN 29 H, Creatinine 0.90, Estim Creat Clear Calc 81.83, Est GFR (MDRD) Af Amer 108, Est GFR (MDRD) Non-Af 89, BUN/Creatinine Ratio 32.0 H, Glucose 127 H, Calcium 8.5, Total Bilirubin 0.70, AST 93 H, ALT 138 H, Alkaline Phosphatase 142 H, Total Protein 6.5, Albumin 2.7 L, Globulin 3.8, Albumin/Globulin Ratio 0.7 L Charges/Coding Visit Charges Inpatient E&M: 59503 Init Hosp L3
--- NOTE | 2020-12-22 17:12 | PN.HOSP_ITS ---
Subjective Subjective Follow-up on hypoxia/acute COVID-19 pneumonia: Patient was seen and examined. Currently on 12 L of oxygen. No other complaints Objective Data Objective Data Vital Signs: Vital Signs Temp Pulse Resp BP Pulse Ox 97.7 F L 77 18 126/89 H 94 12/22/20 16:44 12/22/20 16:44 12/22/20 16:44 12/22/20 16:44 12/22/20 16:44 Oxygen Flow Rate (L/min) 12 Oxygen Delivery Method Nasal Cannula Weight: 100.335 kg Body Mass Index (BMI) 33.5 Intake & Output: Intake and Output for Last 24 Hours 12/20/20 12/21/20 12/22/20 23:59 23:59 23:59 Intake Total 1650 / 1950 1400 / 1400 1200 / 1200 Balance 1650 / 1950 1400 / 1400 1200 / 1200 Lab / Micro Data Result Diagrams: 12/22/20 06:14 12/22/20 06:14 Labs: Laboratory Results - last 24 hr 12/22/20 06:14: WBC 6.8, RBC 4.14 L, Hgb 12.8 L, Hct 39.9 L, MCV 96.4 H, MCH 30.9, MCHC 32.1, RDW Std Deviation 52.6 H, RDW Coeff of Arthur 14.6, Plt Count 260, MPV 10.0, Immature Gran % (Auto) 1.500 H, Neut % (Auto) 76.8 H, Lymph % (Auto) 13.9 L, [place] % (Auto) 7.5, Eos % (Auto) 0.0, Baso % (Auto) 0.3, Absolute Neuts (auto) 5.2, Absolute Lymphs (auto) 0.94, Nucleated RBC % 0.3, Differential Comm ent SCANNED, Atypical Lymphocytes RARE 12/22/20 06:14: Sodium 134 L, Potassium 4.3, Chloride 101, Carbon Dioxide 27.0, Anion Gap 6, BUN 29 H, Creatinine 0.90, Estim Creat Clear Calc 81.83, Est GFR (MDRD) Af Amer 108, Est GFR (MDRD) Non-Af 89, BUN/Creatinine Ratio 32.0 H, Glucose 127 H, Calcium 8.5, Total Bilirubin 0.70, AST 93 H, ALT 138 H, Alkaline Phosphatase 142 H, Total Protein 6.5, Albumin 2.7 L, Globulin 3.8, Albumin/Globulin Ratio 0.7 L Micro: Microbiology 12/18/20 18:00 Urine, Clean Catch Legionella Antigen - Final 12/18/20 18:00 Urine, Clean Catch Streptococcus pneumoniae Antigen (M - Final 12/18/20 18:00 Nasal Secretion SARS-CoV-2 Antigen (Rapid) - Final 12/18/20 15:44 Mucosa - Nasopharyngeal Respiratory Panel (PCR) - Final Physical Exam Narrative Physical exam: General: Alert, Oriented x3, Cooperative, No apparent distress, Well developed, on 12 L of oxygen HEENT: Atraumatic Oral: Moist Mucosa Neck: Supple Lungs: Diminished to auscultation Cardiovascular: HS I+II, regular, no murmurs Abdomen: Bowel Sounds Present, Soft, Non Tender Extremities: No edema Assessment & Plan Assessment/Plan (1) COVID: (2) Hypoxia: PLAN: 1. Acute hypoxic respiratory insufficiency secondary to acute COVID-19 pneumonia, worsening Patient is on 12 L of oxygen Chest x-ray showed patchy bilateral pulmonary infiltrates, worse in the left lung Symptoms started about 10 days ago Continue on Decadron and remdesivir; completed remdesivir today Encourage use of incentive spirometer, proning Pulmonology consulted 2. Elevated D-dimer, acute PE ruled out, continue on Lovenox 30 mg twice daily Charges/Coding Visit Charges Inpatient E&M: 81606 [facility] Hosp L3
[2020-12-22] MEDS: Mag Hydrox/Al Hydrox/Simeth 30 ML UDC PO (21:48)
[2020-12-22] MEDS: Sodium Chloride 0.65% 1 SPRAY SPRAY.BTL 2 SPRAY NASAL (21:56)
[2020-12-23] VITALS (8 sets, daily range): BP systolic 113–125; BP diastolic 69–74; PULSE 53–88; RESP 16–18; TEMP 36.3–36.8; O2SAT 92–100
[2020-12-23] MEDS: guaiFENesin 10 ML UDC (200MG/10ML) 20 ML PO (00:05)
[2020-12-23] MEDS: Acetaminophen 325 MG Tablet 650 MG PO ×2 (00:05→23:27)
--- NOTE | 2020-12-23 07:55 | PCM.PN.INT ---
Assessment & Plan Assessment/Plan (1) COVID: (2) Acute respiratory failure with hypoxia: PLAN: RECOMMENDATIONS: 1. Diuresis as tolerated. Await morning labs 2. Encourage incentive spirometer, Acapella and prone positioning 3. Complete courses of remdesivir (12/22/2020) and Decadron (12/29/2020) therapy 4. Continue prophylactic dose anticoagulation 5. Await sputum culture IMPRESSIONS: 1. Acute hypoxic respiratory failure secondary to COVID-19 pneumonia Patient with progression of disease. It is unclear if this is secondary to worsening secondary to another process or COVID-19. Agree with diuretics as ordered. Patient should be continued on Remdesivir and Decadron therapy. Stressed to the patient the importance of using incentive spirometer, Acapella and prone positioning. Await morning labs and sputum culture. Possible diuretic therapy today. Previously patient's liver enzymes were slightly elevated, but not enough to discontinue therapy. 2. Obesity/nonvaccinated status/poor primary care Complicates care, management, recovery and prognosis. Patient does not have any past medical history, but it is unclear if this is secondary to a lack of primary care follow-up. Patient's blood glucose is slightly elevated, but this may be secondary to steroid therapy, not diabetes. Patient should likely establish with a PCP on discharge. Subjective Subjective Patient did well overnight. No acute issues were reported. Patient did report some decreased sleep secondary to polyuria. Patient continues to have a cough with no real production. Objective Data Objective Data Vital Signs: Vital Signs Temp Pulse Resp BP Pulse Ox 36.8 C 76 18 116/69 94 12/23/20 04:39 12/23/20 04:39 12/23/20 04:39 12/23/20 04:39 12/23/20 04:39 Oxygen Flow Rate (L/min) 12 Oxygen Delivery Method Nasal Cannula Weight: 99.9 kg Body Mass Index (BMI) 33.5 Intake & Output: Intake and Output for Last 24 Hours 12/21/20 12/22/20 12/23/20 23:59 23:59 23:59 Intake Total 1400 / 1400 1450 / 1450 Balance 1400 / 1400 1450 / 1450 Lab / Micro Data Result Diagrams: 12/22/20 06:14 12/22/20 06:14 Micro: Microbiology 12/18/20 18:00 Urine, Clean Catch Legionella Antigen - Final 12/18/20 18:00 Urine, Clean Catch Streptococcus pneumoniae Antigen (M - Final 12/18/20 18:00 Nasal Secretion SARS-CoV-2 Antigen (Rapid) - Final 12/18/20 15:44 Mucosa - Nasopharyngeal Respiratory Panel (PCR) - Final Physical Exam Const alert and oriented x3 Constitutional Narrative: Mild conversational dyspnea General Appearance: cooperative and well developed HEENT normocephalic, head/scalp atraumatic and moist oral mucous membranes Eyes PERRL and EOMs intact bilaterally Neck full ROM and no lymphadenopathy Chest inspection of chest normal Chest: symmetrical chest wall rise; Negative for crepitus Resp no use of accessory muscles Auscultation: diminished lung sounds; Negative for rales, rhonchi or wheezes Percussion: Negative for dullness Cardio regular rate, regular rhythm, S1 normal heart sound, S2 normal heart sound, no murmurs, no rub and no gallops GI normal to inspection, nondistended, normoactive bowel sounds no CVA tenderness Extremity no clubbing, cyanosis or edema Skin no rashes or lesions noted Neuro oriented x3, CN's II-XII intact bilaterally, moves all extremities and no focal motor deficits Psych cooperative and affect normal Charges/Coding Visit Charges Inpatient E&M: 04966 Subs Hosp L3
[2020-12-23] MEDS: dexAMETHasone 4 MG Tablet 6 MG PO (08:56)
[2020-12-23] MEDS: Enoxaparin 30 MG/0.3 ML Syringe SC ×2 (08:57→23:20)
[2020-12-23] MEDS: Sodium Chloride 0.65% 1 SPRAY SPRAY.BTL 2 SPRAY NASAL (08:58)
[2020-12-23 09:11] LABS: Anion Gap 8 (5-15); BUN 29 mg/dL (7-18); BUN/Creat Ratio 31.3 RATIO (10-20); Calcium,Total 8.7 mg/dL (8.5-10.1); Chloride 99 mmol/L (98-107); Creatinine, Serum 0.93 mg/dL (0.70-1.30); EST Glomerular Filtration Rate 87 mL/min (>60); Est Glom Filt Rate - Afr Amer 105 mL/min (>60); Estimated Creatinine Clearance 79.19 ml/min; Glucose 131 mg/dL (74-106); Potassium 4.6 mmol/L (3.5-5.1); Sodium Level 133 mmol/L (136-145)
[2020-12-23] MEDS: Furosemide 40 MG/4 ML Vial IV (12:15)
[2020-12-23] MEDS: 0.9% Saline Lock 10 ML Syringe IV (12:15)
--- NOTE | 2020-12-23 15:27 | PCM.PN.HOSP ---
Subjective Subjective Follow-up on acute respiratory failure/COVID-19 pneumonia Patient was seen and examined. Oxygen requirements appear to be going up. Sputum cultures are pending Objective Data Objective Data Vital Signs: Vital Signs Temp Pulse Resp BP Pulse Ox 97.6 F L 86 18 113/70 93 12/23/20 12:18 12/23/20 12:18 12/23/20 12:18 12/23/20 12:18 12/23/20 13:57 Oxygen Flow Rate (L/min) 13 Oxygen Delivery Method Nasal Cannula Weight: 99.9 kg Body Mass Index (BMI) 33.5 Intake & Output: Intake and Output for Last 24 Hours 12/21/20 12/22/20 12/23/20 23:59 23:59 23:59 Intake Total 1400 / 1400 1450 / 1450 800 / 800 Balance 1400 / 1400 1450 / 1450 800 / 800 Lab / Micro Data Result Diagrams: 12/22/20 06:14 12/23/20 08:31 Labs: Laboratory Results - last 24 hr 12/23/20 08:31: Sodium 133 L, Potassium 4.6, Chloride 99, Carbon Dioxide 26.0, Anion Gap 8, BUN 29 H, Creatinine 0.93, Estim Creat Clear Calc 79.19, Est GFR (MDRD) Af Amer 105, Est GFR (MDRD) Non-Af 87, BUN/Creatinine Ratio 31.3 H, Glucose 131 H, Calcium 8.7 Micro: Microbiology 12/18/20 18:00 Urine, Clean Catch Legionella Antigen - Final 12/18/20 18:00 Urine, Clean Catch Streptococcus pneumoniae Antigen (M - Final 12/18/20 18:00 Nasal Secretion SARS-CoV-2 Antigen (Rapid) - Final 12/18/20 15:44 Mucosa - Nasopharyngeal Respiratory Panel (PCR) - Final Physical Exam Narrative Physical exam: General: Alert, Oriented x3, Cooperative, No apparent distress, Well developed, on 13 L of oxygen HEENT: Atraumatic Oral: Moist Mucosa Neck: Supple Lungs: Diminished to auscultation Cardiovascular: HS I+II, regular, no murmurs Abdomen: Bowel Sounds Present, Soft, Non Tender Extremities: No edema Assessment & Plan Assessment/Plan (1) COVID: (2) Hypoxia: PLAN: 1. Acute hypoxic respiratory insufficiency secondary to acute COVID-19 pneumonia, worsening Patient is on 13 L of oxygen Chest x-ray showed patchy bilateral pulmonary infiltrates, worse in the left lung Symptoms started about 10 days ago Continue on Decadron. Completed remdesivir today Encourage use of incentive spirometer, proning Pulmonology consulted Follow-up on sputum cultures 2. Elevated D-dimer, acute PE ruled out, continue on Lovenox 30 mg twice daily Charges/Coding Visit Charges Inpatient E&M: 60748 Subs Hosp L3
[2020-12-23] MEDS: Mag Hydrox/Al Hydrox/Simeth 30 ML UDC PO ×2 (15:35→23:27)
[2020-12-24] VITALS (11 sets, daily range): BP systolic 104–146; BP diastolic 60–83; PULSE 81–109; RESP 18–23; TEMP 36.3–36.9; O2SAT 90–95
[2020-12-24 07:06] LABS: Absolute Lymphocyte Count 0.98 X10^3/uL (0.83-4.51); Absolute Neutrophil Count 9.7 X10^3/uL (2.0-7.7); Basophil# 0.02 X10^3/uL; Basophil% 0.2 % (0-1); Eosinophil# 0.03 X10^3/uL; Eosinophils% 0.3 % (0-5); Hematocrit 42.8 % (40-54); Lymphocyte # 0.98 X10^3/ul (0.83-4.51); Lymphocyte % 8.6 % (19-41); Mean Corp Hgb Conc 32.7 g/dL (32-36); Mean Corpuscular Hgb 31.4 pg (27.0-32.0); Mean Platelet Vol. 10.1 fl (6.2-12.0); Monocyte# 0.45 X10^3/uL; Monocyte% 3.9 % (0-10); NRBC Flagged by Analyzer 0.2 % (0-5); Neutrophil # 9.67 X10^3/uL (2.7-7.7); Neutrophil % 84.6 % (47-70); Platelet Count 312 K/mm3 (150-450); RBC Distribution Width CV 14.5 % (11.6-14.6); RBC Distribution Width SD 51.7 fl (35.1-43.9); Red Blood Count 4.46 M/mm3 (4.6-6.2); White Blood Count 11.4 K/mm3 (4.4-11.0)
[2020-12-24 07:51] LABS: ALB/GLOB Ratio 0.7 RATIO (0.9-2.4); AST(SGOT) 62 U/L (15-37); Alanine Aminotransfer ALT/SGPT 151 U/L (16-61); Albumin, Serum 2.8 g/dL (3.2-5.0); Alkaline Phosphatase 124 U/L (45-117); Anion Gap 8 (5-15); BUN 31 mg/dL (7-18); Chloride 96 mmol/L (98-107); EST Glomerular Filtration Rate 80 mL/min (>60); Est Glom Filt Rate - Afr Amer 97 mL/min (>60); Estimated Creatinine Clearance 73.65 ml/min; Glucose 133 mg/dL (74-106); Potassium 4.5 mmol/L (3.5-5.1); Protein, Total 6.8 g/dL (6.4-8.2); Sodium Level 133 mmol/L (136-145)
--- NOTE | 2020-12-24 08:06 | PCM.PN.INT ---
Assessment & Plan Assessment/Plan (1) COVID: (2) Acute respiratory failure with hypoxia: PLAN: RECOMMENDATIONS: 1. Diuresis as tolerated. Await morning labs 2. Encourage incentive spirometer, Acapella and prone positioning 3. Completed course of remdesivir (12/22/2020). Continue Decadron (12/29/2020) therapy 4. Continue prophylactic dose anticoagulation 5. Await sputum culture IMPRESSIONS: 1. Acute hypoxic respiratory failure secondary to COVID-19 pneumonia Patient with progression of disease. It is unclear if this is secondary to worsening secondary to another process or COVID-19. Agree with diuretics as ordered. Patient should be continued on Remdesivir and Decadron therapy. Stressed to the patient the importance of using incentive spirometer, Acapella and prone positioning. Continue diuretic therapy as labs allow. Previously patient's liver enzymes were slightly elevated, but not enough to discontinue therapy. 2. Obesity/nonvaccinated status/poor primary care Complicates care, management, recovery and prognosis. Patient does not have any past medical history, but it is unclear if this is secondary to a lack of primary care follow-up. Patient's blood glucose is slightly elevated, but this may be secondary to steroid therapy, not diabetes. Patient should likely establish with a PCP on discharge. Subjective Subjective Patient did okay overnight. Patient frustrated that he continues to be hospitalized and feels relatively well. No epistaxis has been reported. Objective Data Objective Data Vital Signs: Vital Signs Temp Pulse Resp BP Pulse Ox 36.7 C 81 18 104/60 94 12/24/20 03:30 12/24/20 03:30 12/24/20 03:30 12/24/20 03:30 12/24/20 05:09 Oxygen Flow Rate (L/min) 13 Oxygen Delivery Method Nasal Cannula Weight: 99.1 kg Body Mass Index (BMI) 33.5 Intake & Output: Intake and Output for Last 24 Hours 12/22/20 12/23/20 12/24/20 23:59 23:59 23:59 Intake Total 1450 / 1450 1100 / 1100 400 / 400 Balance 1450 / 1450 1100 / 1100 400 / 400 Lab / Micro Data Result Diagrams: 12/24/20 06:05 12/24/20 06:05 Labs: Laboratory Results - last 24 hr 12/23/20 08:31: Sodium 133 L, Potassium 4.6, Chloride 99, Carbon Dioxide 26.0, Anion Gap 8, BUN 29 H, Creatinine 0.93, Estim Creat Clear Calc 79.19, Est GFR (MDRD) Af Amer 105, Est GFR (MDRD) Non-Af 87, BUN/Creatinine Ratio 31.3 H, Glucose 131 H, Calcium 8.7 12/24/20 06:05: WBC 11.4 H, RBC 4.46 L, Hgb 14.0, Hct 42.8, MCV 96.0 H, MCH 31.4, MCHC 32.7, RDW Std Deviation 51.7 H, RDW Coeff of Arthur 14.5, Plt Count 312, MPV 10.1, Immature Gran % (Auto) 2.400 H, Neut % (Auto) 84.6 H, Lymph % (Auto) 8.6 L, [place] % (Auto) 3.9, Eos % (Auto) 0.3, Baso % (Auto) 0.2, Absolute Neuts (auto) 9.7 H, Absolute Lymphs (auto) 0.98, Nucleated RBC % 0.2 12/24/20 06:05: Sodium 133 L, Potassium 4.5, Chloride 96 L, Carbon Dioxide 29.0, Anion Gap 8, BUN 31 H, Creatinine 1.00, Estim Creat Clear Calc 73.65, Est GFR (MDRD) Af Amer 97, Est GFR (MDRD) Non-Af 80, BUN/Creatinine Ratio 31.0 H, Glucose 133 H, Calcium 9.0, Total Bilirubin 0.70, AST 62 H, ALT 151 H, Alkaline Phosphatase 124 H, Total Protein 6.8, Albumin 2.8 L, Globulin 4.0, Albumin/Globulin Ratio 0.7 L Micro: Microbiology 12/18/20 18:00 Urine, Clean Catch Legionella Antigen - Final 12/18/20 18:00 Urine, Clean Catch Streptococcus pneumoniae Antigen (M - Final 12/18/20 18:00 Nasal Secretion SARS-CoV-2 Antigen (Rapid) - Final 12/18/20 15:44 Mucosa - Nasopharyngeal Respiratory Panel (PCR) - Final Physical Exam Const alert and oriented x3 Constitutional Narrative: Mild conversational dyspnea General Appearance: cooperative and well developed HEENT normocephalic, head/scalp atraumatic and moist oral mucous membranes Eyes PERRL and EOMs intact bilaterally Neck full ROM and no lymphadenopathy Chest inspection of chest normal Chest: symmetrical chest wall rise; Negative for crepitus Resp no use of accessory muscles Auscultation: diminished lung sounds; Negative for rales, rhonchi or wheezes Percussion: Negative for dullness Cardio regular rate, regular rhythm, S1 normal heart sound, S2 normal heart sound, no murmurs, no rub and no gallops GI normal to inspection, nondistended, normoactive bowel sounds no CVA tenderness Extremity no clubbing, cyanosis or edema Skin no rashes or lesions noted Neuro oriented x3, CN's II-XII intact bilaterally, moves all extremities and no focal motor deficits Psych cooperative and affect normal Charges/Coding Visit Charges Inpatient E&M: 34833 Subs Hosp L2
[2020-12-24] MEDS: Enoxaparin 30 MG/0.3 ML Syringe SC ×2 (08:52→21:02)
[2020-12-24] MEDS: dexAMETHasone 4 MG Tablet 6 MG PO (08:53)
[2020-12-24] MEDS: 0.9% Saline Lock 10 ML Syringe IV (09:03)
[2020-12-24] MEDS: Furosemide 40 MG/4 ML Vial IV (09:03)
--- NOTE | 2020-12-24 14:21 | CPS ---
Called to pt's room to set up Airvo on pt. Upon entering room pt was proning on high flow nasal cannula with flowmeter turned all the way up. Saturation was 89-90%. Pt stated he did feel S.O.B. Pt was placed on Aivo at 50l and 66%. Saturation 93% and pt ambreen well. Pt stated he did feel better after being placed on airvo.
--- NOTE | 2020-12-24 15:17 | PN.HOSP_ITS ---
Subjective Subjective Follow-up on acute respiratory failure/COVID-19 pneumonia: Patient was seen and examined. His oxygen requirements are worsening. He has been transitioned to Airvo. Sputum cultures are pending. Objective Data Objective Data Vital Signs: Vital Signs Temp Pulse Resp BP Pulse Ox 97.3 F L 95 18 123/83 H 93 12/24/20 13:30 12/24/20 14:00 12/24/20 14:00 12/24/20 13:30 12/24/20 14:00 Oxygen Flow Rate (L/min) 13 Oxygen Delivery Method Nasal Cannula Weight: 99.1 kg Body Mass Index (BMI) 33.5 Intake & Output: Intake and Output for Last 24 Hours 12/22/20 12/23/20 12/24/20 23:59 23:59 23:59 Intake Total 1450 / 1450 1100 / 1100 400 / 400 Balance 1450 / 1450 1100 / 1100 400 / 400 Lab / Micro Data Result Diagrams: 12/24/20 06:05 12/24/20 06:05 Labs: Laboratory Results - last 24 hr 12/24/20 06:05: WBC 11.4 H, RBC 4.46 L, Hgb 14.0, Hct 42.8, MCV 96.0 H, MCH 31.4, MCHC 32.7, RDW Std Deviation 51.7 H, RDW Coeff of Arthur 14.5, Plt Count 312, MPV 10.1, Immature Gran % (Auto) 2.400 H, Neut % (Auto) 84.6 H, Lymph % (Auto) 8.6 L, [place] % (Auto) 3.9, Eos % (Auto) 0.3, Baso % (Auto) 0.2, Absolute Neuts (auto) 9.7 H, Absolute Lymphs (auto) 0.98, Nucleated RBC % 0.2 12/24/20 06:05: Sodium 133 L, Potassium 4.5, Chloride 96 L, Carbon Dioxide 29.0, Anion Gap 8, BUN 31 H, Creatinine 1.00, Estim Creat Clear Calc 73.65, Est GFR (MDRD) Af Amer 97, Est GFR (MDRD) Non-Af 80, BUN/Creatinine Ratio 31.0 H, Glucose 133 H, Calcium 9.0, Total Bilirubin 0.70, AST 62 H, ALT 151 H, Alkaline Phosphatase 124 H, Total Protein 6.8, Albumin 2.8 L, Globulin 4.0, Albumin/Globulin Ratio 0.7 L Micro: Microbiology 12/23/20 12:32 Sputum, Expectorated/Coughed Gram Stain - Final 12/23/20 12:32 Sputum, Expectorated/Coughed Respiratory Culture - Preliminary Appears to be normal respiratory damian. Further studies to follow. 12/18/20 18:00 Urine, Clean Catch Legionella Antigen - Final 12/18/20 18:00 Urine, Clean Catch Streptococcus pneumoniae Antigen (M - Final 12/18/20 18:00 Nasal Secretion SARS-CoV-2 Antigen (Rapid) - Final 12/18/20 15:44 Mucosa - Nasopharyngeal Respiratory Panel (PCR) - Final Physical Exam Narrative Physical exam: General: Alert, Oriented x3, Cooperative, No apparent distress, Well developed, on Airvo HEENT: Atraumatic Oral: Moist Mucosa Neck: Supple Lungs: Diminished to auscultation Cardiovascular: HS I+II, regular, no murmurs Abdomen: Bowel Sounds Present, Soft, Non Tender Extremities: No edema Assessment & Plan Assessment/Plan (1) COVID: (2) Hypoxia: PLAN: 1. Acute hypoxic respiratory failure secondary to acute COVID-19 pneumonia, worsening Patient is on Airvo Chest x-ray showed patchy bilateral pulmonary infiltrates, worse in the left lung Continue on Decadron until 12/29/20. Completed remdesivir Encourage use of incentive spirometer, proning Pulmonology consulted Follow-up on sputum cultures 2. Elevated D-dimer, acute PE ruled out, continue on Lovenox 30 mg twice daily Charges/Coding Visit Charges Inpatient E&M: 49631 Subs Hosp L3
[2020-12-24] MEDS: Mag Hydrox/Al Hydrox/Simeth 30 ML UDC PO (21:03)
[2020-12-24] MEDS: Acetaminophen 325 MG Tablet 650 MG PO (21:04)
[2020-12-25] VITALS (14 sets, daily range): BP systolic 118–137; BP diastolic 66–82; PULSE 66–116; RESP 18–22; TEMP 36.7–37; O2SAT 85–98
[2020-12-25 06:08] LABS: Absolute Lymphocyte Count 1.06 X10^3/uL (0.83-4.51); Absolute Neutrophil Count 8.7 X10^3/uL (2.0-7.7); Basophil# 0.03 X10^3/uL; Basophil% 0.3 % (0-1); Eosinophil# 0.11 X10^3/uL; Hematocrit 41.4 % (40-54); Hemoglobin 13.7 g/dL (13.0-16.5); Lymphocyte # 1.06 X10^3/ul (0.83-4.51); Lymphocyte % 9.8 % (19-41); Mean Corp Hgb Conc 33.1 g/dL (32-36); Mean Corpuscular Hgb 31.1 pg (27.0-32.0); Mean Corpuscular Volume 94.1 fL (80-94); Mean Platelet Vol. 9.5 fl (6.2-12.0); Monocyte# 0.54 X10^3/uL; NRBC Flagged by Analyzer 0 % (0-5); Neutrophil # 8.69 X10^3/uL (2.7-7.7); Neutrophil % 79.9 % (47-70); Platelet Count 309 K/mm3 (150-450); RBC Distribution Width CV 14.3 % (11.6-14.6); RBC Distribution Width SD 49.6 fl (35.1-43.9); White Blood Count 10.9 K/mm3 (4.4-11.0)
[2020-12-25 06:39] LABS: ALB/GLOB Ratio 0.7 RATIO (0.9-2.4); AST(SGOT) 37 U/L (15-37); Alanine Aminotransfer ALT/SGPT 115 U/L (16-61); Albumin, Serum 2.7 g/dL (3.2-5.0); Alkaline Phosphatase 107 U/L (45-117); Anion Gap 8 (5-15); BUN 33 mg/dL (7-18); BUN/Creat Ratio 33.1 RATIO (10-20); Calcium,Total 8.9 mg/dL (8.5-10.1); Chloride 93 mmol/L (98-107); EST Glomerular Filtration Rate 80 mL/min (>60); Est Glom Filt Rate - Afr Amer 97 mL/min (>60); Estimated Creatinine Clearance 73.65 ml/min; Glucose 128 mg/dL (74-106); Potassium 4.3 mmol/L (3.5-5.1); Protein, Total 6.7 g/dL (6.4-8.2); Sodium Level 131 mmol/L (136-145)
--- NOTE | 2020-12-25 09:10 | CPS ---
This RT entered room to check Airvo and pt very angry that it could not reach the sink to wash his hands. Told the pt i was very sorry that it could not reach but there was not much we could do about it. Pt continued to be very angry.
--- NOTE | 2020-12-25 11:42 | NURSING ---
This nurse went in to perform assessment and give scheduled meds at 1045. Pt was getting ready to watch mothers on the laptop and requested this nurse come back later. this nurse told pt to put call light on when he was ready for this nurse to come back.
[2020-12-25] MEDS: Enoxaparin 30 MG/0.3 ML Syringe SC ×2 (12:51→21:44)
[2020-12-25] MEDS: dexAMETHasone 4 MG Tablet 6 MG PO (12:52)
--- NOTE | 2020-12-25 15:46 | PCM.PN.HOSP ---
Subjective Subjective Patient reports that he is feeling okay and just got done with a . He remains on air Vo with an FiO2 of 60% and SPO2 of 85 to 92%. He asked when he will be able to go home and get off the arrow. We discussed that he would require oxygen saturations greater than 90% on the air Vo to continue weaning of oxygen. He has no specific complaints at this time. Objective Data Objective Data Vital Signs: Vital Signs Temp Pulse Resp BP Pulse Ox 98.2 F 109 H 20 H 124/79 H 88 12/25/20 12:59 12/25/20 12:59 12/25/20 12:59 12/25/20 12:59 12/25/20 12:59 Oxygen Flow Rate (L/min) 13 Oxygen Delivery Method Room Air Weight: 98.6 kg Body Mass Index (BMI) 33.5 Intake & Output: Intake and Output for Last 24 Hours 12/23/20 12/24/20 12/25/20 23:59 23:59 23:59 Intake Total 1100 / 1100 880 / 1280 1060 / 1060 Output Total 475 / 950 875 / 875 Balance 1100 / 1100 405 / 330 185 / 185 Lab / Micro Data Result Diagrams: 12/25/20 05:26 12/25/20 05:26 Labs: Laboratory Results - last 24 hr 12/25/20 05:26: WBC 10.9, RBC 4.40 L, Hgb 13.7, Hct 41.4, MCV 94.1 H, MCH 31.1, MCHC 33.1, RDW Std Deviation 49.6 H, RDW Coeff of Arthur 14.3, Plt Count 309, MPV 9.5, Immature Gran % (Auto) 4.000 H, Neut % (Auto) 79.9 H, Lymph % (Auto) 9.8 L, [place] % (Auto) 5.0, Eos % (Auto) 1.0, Baso % (Auto) 0.3, Absolute Neuts (auto) 8.7 H, Absolute Lymphs (auto) 1.06, Nucleated RBC % 0 12/25/20 05:26: Sodium 131 L, Potassium 4.3, Chloride 93 L, Carbon Dioxide 30.0, Anion Gap 8, BUN 33 H, Creatinine 1.00, Estim Creat Clear Calc 73.65, Est GFR (MDRD) Af Amer 97, Est GFR (MDRD) Non-Af 80, BUN/Creatinine Ratio 33.1 H, Glucose 128 H, Calcium 8.9, Total Bilirubin 0.80, AST 37, ALT 115 H, Alkaline Phosphatase 107, Total Protein 6.7, Albumin 2.7 L, Globulin 4.0, Albumin/Globulin Ratio 0.7 L Micro: Microbiology 12/23/20 12:32 Sputum, Expectorated/Coughed Gram Stain - Final 12/23/20 12:32 Sputum, Expectorated/Coughed Respiratory Culture - Preliminary GNR Poss Pseudomonas sp 12/18/20 18:00 Urine, Clean Catch Legionella Antigen - Final 12/18/20 18:00 Urine, Clean Catch Streptococcus pneumoniae Antigen (M - Final 12/18/20 18:00 Nasal Secretion SARS-CoV-2 Antigen (Rapid) - Final 12/18/20 15:44 Mucosa - Nasopharyngeal Respiratory Panel (PCR) - Final Physical Exam Const alert, oriented x3 and no apparent distress Constitutional Narrative: Obese, upper middle-aged white male sitting up in bed watching television currently on arrival, nontoxic, appears comfortable Exam Limitations: no limitations Nutritional Appearance: obese HEENT head/scalp atraumatic and moist oral mucous membranes HEENT Narrative: No thrush noted Head and Scalp: normocephalic Resp normal respiratory effort, no retractions and no use of accessory muscles Resp Narrative: Crackles but otherwise diminished Auscultation: crackles; Negative for rales, rhonchi or wheezes Cardio regular rhythm, S1 normal heart sound, S2 normal heart sound, no murmurs, no rub, no gallops, no clicks and no JVD Cardio Narrative: Mild tachycardia GI normal to inspection, nondistended, normoactive bowel sounds, soft to palpation, non-tender and non-distended Extremity normal to inspection and no clubbing, cyanosis or edema Peripheral Pulses: Yes pulses 2+ throughout Neuro oriented x3, moves all extremities and no focal motor deficits Sensorium / Orientation: awake and alert Speech: speech normal Psych affect normal Assessment & Plan Assessment/Plan (1) Acute respiratory failure with hypoxia: (2) COVID: (3) Hyponatremia: PLAN: Acute hypoxic respiratory failure secondary to COVID-19 pneumonia -Patient remains on air Vo with an FiO2 of 60% -Wean as oxygenation allows -Continue Decadron day 7 of -Patient has completed remdesivir therapy -Continue prone positioning -Continue incentive spirometry/Acapella -We will dose with Lasix 40 mg IV push x1 today -Sputum is showing possible Pseudomonas on growth -Start Zosyn -Pulmonary following-appreciate input Superimposed bacterial pneumonia with Pseudomonas -Start Zosyn--> patient shows allergy to amoxicillin and itching but no rash or anaphylaxis -Will trial and if patient develops itching will change antibiotics -Await sensitivities Hyponatremia -Suspect related to COVID-19 infection -Overall relatively stable -Continue to monitor Obesity -BMI is 32.1 -Recommend weight loss -Complicates overall treatment, prognosis, outcomes DVT prophylaxis -Continue prophylactic dose anticoagulation Charges/Coding Visit Charges Inpatient E&M: 10294 Subs Hosp L2
[2020-12-25] MEDS: Furosemide 40 MG/4 ML Vial IV (16:47)
[2020-12-25] MEDS: Acetaminophen 325 MG Tablet 650 MG PO (21:43)
[2020-12-25] MEDS: Mag Hydrox/Al Hydrox/Simeth 30 ML UDC PO (21:43)
[2020-12-26] VITALS (10 sets, daily range): BP systolic 117–134; BP diastolic 69–80; PULSE 78–104; RESP 16–20; TEMP 36.6–36.9; O2SAT 91–98
[2020-12-26] MEDS: 0.9% Saline Lock 10 ML Syringe IV ×5 (06:32→22:52)
[2020-12-26 07:01] LABS: Anion Gap 8 (5-15); BUN 33 mg/dL (7-18); BUN/Creat Ratio 34.6 RATIO (10-20); Calcium,Total 8.8 mg/dL (8.5-10.1); Chloride 94 mmol/L (98-107); Creatinine, Serum 0.95 mg/dL (0.70-1.30); EST Glomerular Filtration Rate 84 mL/min (>60); Est Glom Filt Rate - Afr Amer 102 mL/min (>60); Estimated Creatinine Clearance 77.52 ml/min; Glucose 159 mg/dL (74-106); Potassium 4.3 mmol/L (3.5-5.1); Sodium Level 131 mmol/L (136-145)
--- NOTE | 2020-12-26 07:33 | PCM.PN.INT ---
Assessment & Plan Assessment/Plan (1) COVID: (2) Acute respiratory failure with hypoxia: PLAN: RECOMMENDATIONS: 1. Continue to wean FiO2 to maintain oxygen saturations at or above 90%. 2. Administer IV Lasix again today. 3. Continue antimicrobials to complete 7 days of therapy. 4. Continue Decadron to complete 10 days of therapy. 5. Continue Lovenox twice daily as ordered. 6. Encourage incentive spirometer use and mobilize patient as tolerated. IMPRESSIONS: 1. Acute hypoxic respiratory failure secondary to COVID-19 pneumonia The patient has completed a treatment course of remdesivir and remains on Decadron. He does appear to have a superimposed secondary bacterial pneumonia, with sputum culture positive for Pseudomonas. Accordingly, the patient is on appropriate antimicrobials, which I would recommend be continued for at least 7 days of therapy. Continue to wean FiO2 to maintain oxygen saturations at or above 90%. IV diuretic therapy will be utilized to maintain euvolemic state. Encourage incentive spirometer use and mobilize patient as tolerated. 2. Obesity/nonvaccinated status/poor primary care Complicates care, management, recovery and prognosis. This note was generated with [employer] dictation software. It may contain incorrect words, spelling, and punctuation that were not noted in checking the note before signing. Subjective Subjective The patient was seen and examined at the bedside this morning. Events from the last 24 hours have been reviewed. The patient is currently afebrile, hemodynamically stable and maintaining appropriate oxygen saturations on Airvo heated high flow with an FiO2 requirement of 50% and flow rate of 50 L/min. The patient is currently documented to be overall net +6.4 L for the hospital admission. The patient remains on antimicrobials, Decadron and twice daily Lovenox. Objective Data Objective Data The patient's most recent lab work, culture data and imaging studies have all been personally reviewed. Sputum culture dated December 23 was positive for Pseudomonas. Vital Signs: Vital Signs Temp Pulse Resp BP Pulse Ox 98.4 F 78 20 H 119/80 95 12/26/20 06:27 12/26/20 06:27 12/26/20 06:27 12/26/20 06:27 12/26/20 06:27 Oxygen Flow Rate (L/min) 13 Oxygen Delivery Method Airvo Weight: 98 kg Body Mass Index (BMI) 33.5 Intake & Output: Intake and Output for Last 24 Hours 10/17/21 10/18/21 10/19/21 23:59 23:59 23:59 Intake Total 880 / 1280 1495 / 1495 Output Total 475 / 950 1200 / 1750 550 / 550 Balance 405 / 330 295 / -255 -535 / -535 Lab / Micro Data Attestation: I reviewed the patient's lab results. Result Diagrams: 12/25/20 05:26 12/26/20 06:18 Labs: Laboratory Results - last 24 hr 12/26/20 06:18: Sodium 131 L, Potassium 4.3, Chloride 94 L, Carbon Dioxide 29.0, Anion Gap 8, BUN 33 H, Creatinine 0.95, Estim Creat Clear Calc 77.52, Est GFR (MDRD) Af Amer 102, Est GFR (MDRD) Non-Af 84, BUN/Creatinine Ratio 34.6 H, Glucose 159 H, Calcium 8.8 Micro: Microbiology 12/23/20 12:32 Sputum, Expectorated/Coughed Gram Stain - Final 12/23/20 12:32 Sputum, Expectorated/Coughed Respiratory Culture - Preliminary GNR Poss Pseudomonas sp 12/18/20 18:00 Urine, Clean Catch Legionella Antigen - Final 12/18/20 18:00 Urine, Clean Catch Streptococcus pneumoniae Antigen (M - Final 12/18/20 18:00 Nasal Secretion SARS-CoV-2 Antigen (Rapid) - Final 12/18/20 15:44 Mucosa - Nasopharyngeal Respiratory Panel (PCR) - Final Physical Exam Const alert and no apparent distress General Appearance: cooperative Nutritional Appearance: obese HEENT normocephalic, head/scalp atraumatic and moist oral mucous membranes Eyes PERRL and EOMs intact bilaterally Neck supple General: trachea midline Chest inspection of chest normal Resp Effort and Inspection: Negative for labored Auscultation: rales and diminished lung sounds; Negative for rhonchi or wheezes Cardio regular rate and regular rhythm GI normal to inspection, nondistended, normoactive bowel sounds Extremity no clubbing, cyanosis or edema Skin no rashes or lesions noted Neuro moves all extremities and no focal motor deficits Psych cooperative and affect normal Charges/Coding Visit Charges Inpatient E&M: 47637 Subs Hosp L3
[2020-12-26] MEDS: Enoxaparin 30 MG/0.3 ML Syringe SC ×2 (08:58→22:55)
[2020-12-26] MEDS: Furosemide 40 MG/4 ML Vial IV ×2 (08:58→17:54)
[2020-12-26] MEDS: dexAMETHasone 4 MG Tablet 6 MG PO (08:58)
--- NOTE | 2020-12-26 15:41 | PCM.PN.HOSP ---
Subjective Subjective Patient states he feels fine and is not subjectively short of breath. He indicates that he has taken his oxygen off, which is air Vo, for 10 minutes to take a shower and felt fine. Upon my arrival to the room he is walking around the room without his oxygen on. He has no immediate complaints or needs at this time. Objective Data Objective Data Vital Signs: Vital Signs Temp Pulse Resp BP Pulse Ox 98.3 F 97 18 134/76 H 94 12/26/20 13:00 12/26/20 13:00 12/26/20 13:00 12/26/20 13:00 12/26/20 13:00 Oxygen Flow Rate (L/min) 50 Oxygen Delivery Method Airvo Weight: 98 kg Body Mass Index (BMI) 33.5 Intake & Output: Intake and Output for Last 24 Hours 12/24/20 12/25/20 12/26/20 23:59 23:59 23:59 Intake Total 880 / 1280 1495 / 1495 65 / 65 Output Total 475 / 950 1200 / 1750 550 / 550 Balance 405 / 330 295 / -255 -485 / -485 Lab / Micro Data Result Diagrams: 12/25/20 05:26 12/26/20 06:18 Labs: Laboratory Results - last 24 hr 12/26/20 06:18: Sodium 131 L, Potassium 4.3, Chloride 94 L, Carbon Dioxide 29.0, Anion Gap 8, BUN 33 H, Creatinine 0.95, Estim Creat Clear Calc 77.52, Est GFR (MDRD) Af Amer 102, Est GFR (MDRD) Non-Af 84, BUN/Creatinine Ratio 34.6 H, Glucose 159 H, Calcium 8.8 Micro: Microbiology 12/23/20 12:32 Sputum, Expectorated/Coughed Gram Stain - Final 12/23/20 12:32 Sputum, Expectorated/Coughed Respiratory Culture - Preliminary Pseudomonas aeroginosa 12/18/20 18:00 Urine, Clean Catch Legionella Antigen - Final 12/18/20 18:00 Urine, Clean Catch Streptococcus pneumoniae Antigen (M - Final 12/18/20 18:00 Nasal Secretion SARS-CoV-2 Antigen (Rapid) - Final 12/18/20 15:44 Mucosa - Nasopharyngeal Respiratory Panel (PCR) - Final Physical Exam Const alert, oriented x3 and no apparent distress Constitutional Narrative: Obese, upper middle-aged white male walking around his room without air Vo on, states he is looking for his dental floss Exam Limitations: no limitations Nutritional Appearance: obese HEENT head/scalp atraumatic and moist oral mucous membranes HEENT Narrative: No thrush Head and Scalp: normocephalic Resp normal respiratory effort, no retractions and no use of accessory muscles Resp Narrative: Crackles but otherwise diminished Auscultation: crackles; Negative for rales, rhonchi or wheezes Cardio regular rate, regular rhythm, S1 normal heart sound, S2 normal heart sound, no murmurs, no rub, no gallops, no clicks and no JVD Cardio Narrative: ia GI normal to inspection, nondistended, normoactive bowel sounds, soft to palpation, non-tender and non-distended Extremity normal to inspection and no clubbing, cyanosis or edema Peripheral Pulses: Yes pulses 2+ throughout Neuro oriented x3, moves all extremities and no focal motor deficits Sensorium / Orientation: awake and alert Speech: speech normal Assessment & Plan Assessment/Plan (1) Acute respiratory failure with hypoxia: (2) COVID: (3) Hyponatremia: PLAN: Acute hypoxic respiratory failure secondary to COVID-19 pneumonia -Patient remains on air Vo with an FiO2 of 44% and a flow of 50 L/min -Wean as oxygenation allows--> discussed with respiratory and will try heated high flow nasal cannula -Continue Decadron day 8 10 -Patient has completed remdesivir therapy -Continue prone positioning -Continue incentive spirometry/Acapella -Repeat Lasix 40 mg IV push x1 today -Sputum is showing possible Pseudomonas on growth -Start Zosyn -Pulmonary following-appreciate input Pseudomonal pneumonia superinfection -Patient has had no issues with Zosyn and will continue -Day 2 7--> this is a pansensitive organism -If patient is able to be discharged prior to completing antibiotics would discharge with Levaquin Hyponatremia -Suspect related to COVID-19 infection -Overall relatively stable -Continue to monitor Obesity -BMI is 32.1 -Recommend weight loss -Complicates overall treatment, prognosis, outcomes DVT prophylaxis -Continue prophylactic dose anticoagulation Charges/Coding Visit Charges Inpatient E&M: 81018 Subs Hosp L2
[2020-12-26] MEDS: Mag Hydrox/Al Hydrox/Simeth 30 ML UDC PO (22:51)
[2020-12-26] MEDS: Acetaminophen 325 MG Tablet 650 MG PO (22:51)
[2020-12-27 05:00] VITALS: BP 132/86; PULSE 88; RESP 18; TEMP 36.7; O2SAT 96
[2020-12-27] MEDS: 0.9% Saline Lock 10 ML Syringe IV ×4 (06:30→20:55)
[2020-12-27] MEDS: dexAMETHasone 4 MG Tablet 6 MG PO (07:55)
[2020-12-27] MEDS: Enoxaparin 30 MG/0.3 ML Syringe SC ×2 (07:56→20:55)
[2020-12-27 07:58] LABS: Anion Gap 12 (5-15); BUN 41 mg/dL (7-18); BUN/Creat Ratio 30.4 RATIO (10-20); Calcium,Total 8.9 mg/dL (8.5-10.1); Chloride 93 mmol/L (98-107); Creatinine, Serum 1.35 mg/dL (0.70-1.30); EST Glomerular Filtration Rate 56 mL/min (>60); Est Glom Filt Rate - Afr Amer 68 mL/min (>60); Estimated Creatinine Clearance 54.55 ml/min; Glucose 229 mg/dL (74-106); Potassium 4.3 mmol/L (3.5-5.1); Sodium Level 133 mmol/L (136-145)
[2020-12-27 08:01] VITALS: O2SAT 98
[2020-12-27 12:22] VITALS: BP 138/89; PULSE 98; RESP 18; TEMP 36.8; O2SAT 94
[2020-12-27 13:58] VITALS: PULSE 80
[2020-12-27 14:02] VITALS: BP 131/73; PULSE 89; RESP 20; TEMP 36.7; O2SAT 94
--- NOTE | 2020-12-27 14:56 | PCM.PN.HOSP ---
Subjective Subjective Patient reports he is feeling better today. We have been able to wean his oxygen to heated high flow nasal cannula from air Vo. He is currently on 8 L of heated high flow. He denies any shortness of breath and has no complaints at this time. Objective Data Objective Data Vital Signs: Vital Signs Temp Pulse Resp BP Pulse Ox 98.0 F 89 20 H 131/73 H 94 12/27/20 14:02 12/27/20 14:02 12/27/20 14:02 12/27/20 14:02 12/27/20 14:02 Oxygen Flow Rate (L/min) 8 Oxygen Delivery Method Nasal Cannula Weight: 98.8 kg Body Mass Index (BMI) 33.5 Intake & Output: Intake and Output for Last 24 Hours 12/25/20 12/26/20 12/27/20 23:59 23:59 23:59 Intake Total 1495 / 1495 115 / 115 100 / 100 Output Total 1200 / 1750 550 / 550 Balance 295 / -255 -435 / -435 100 / 100 Lab / Micro Data Result Diagrams: 12/25/20 05:26 12/27/20 06:58 Labs: Laboratory Results - last 24 hr 12/27/20 06:58: Sodium 133 L, Potassium 4.3, Chloride 93 L, Carbon Dioxide 28.0, Anion Gap 12, BUN 41 H, Creatinine 1.35 H, Estim Creat Clear Calc 54.55, Est GFR (MDRD) Af Amer 68, Est GFR (MDRD) Non-Af 56 L, BUN/Creatinine Ratio 30.4 H, Glucose 229 H, Calcium 8.9 Micro: Microbiology 12/23/20 12:32 Sputum, Expectorated/Coughed Gram Stain - Final 12/23/20 12:32 Sputum, Expectorated/Coughed Respiratory Culture - Final Pseudomonas aeroginosa 12/18/20 18:00 Urine, Clean Catch Legionella Antigen - Final 12/18/20 18:00 Urine, Clean Catch Streptococcus pneumoniae Antigen (M - Final 12/18/20 18:00 Nasal Secretion SARS-CoV-2 Antigen (Rapid) - Final 12/18/20 15:44 Mucosa - Nasopharyngeal Respiratory Panel (PCR) - Final Physical Exam Const alert, oriented x3 and no apparent distress Constitutional Narrative: Obese, upper middle-aged white male sitting up in bed, watching television, appears comfortable, nontoxic, currently on heated high flow nasal cannula Exam Limitations: no limitations Nutritional Appearance: obese HEENT head/scalp atraumatic and moist oral mucous membranes HEENT Narrative: No thrush Head and Scalp: normocephalic Resp normal respiratory effort, no retractions, no use of accessory muscles and clear to auscultation bilaterally Resp Narrative: Diminished but clear Auscultation: crackles; Negative for rales, rhonchi or wheezes Cardio regular rate, regular rhythm, S1 normal heart sound, S2 normal heart sound, no murmurs, no rub, no gallops, no clicks and no JVD Cardio Narrative: ia GI normal to inspection, nondistended, normoactive bowel sounds, soft to palpation, non-tender and non-distended Extremity normal to inspection and no clubbing, cyanosis or edema Neuro oriented x3 and moves all extremities Sensorium / Orientation: awake and alert Assessment & Plan Assessment/Plan (1) Acute respiratory failure with hypoxia: (2) COVID: (3) Hyponatremia: PLAN: Acute hypoxic respiratory failure secondary to COVID-19 pneumonia -Patient remains on air Vo with an FiO2 of 44% and a flow of 50 L/min -Wean as oxygenation allows--> discussed with respiratory and will try heated high flow nasal cannula -Continue Decadron day 9 10 -Patient has completed remdesivir therapy -Continue prone positioning -Continue incentive spirometry/Acapella -We will hold Lasix today with rising serum creatinine -Pulmonary following-appreciate input -Discussed with patient that once he was on 6 L or less with ambulation we will be able to discuss discharge -Patient does have a home pulse oximetry monitor Pseudomonal pneumonia superinfection -Patient has had no issues with Zosyn and will continue -Day 3 of 7--> this is a pansensitive organism -If patient is able to be discharged prior to completing antibiotics would discharge with Levaquin HARSHA -Suspect iatrogenic from diuresis -Hold Lasix today -Repeat BMP in a.m. Hyponatremia -Suspect related to COVID-19 infection -Overall relatively stable -Continue to monitor Obesity -BMI is 32.1 -Recommend weight loss -Complicates overall treatment, prognosis, outcomes DVT prophylaxis -Continue prophylactic dose anticoagulation Charges/Coding Visit Charges Inpatient E&M: 89970 Subs Hosp L2
--- NOTE | 2020-12-27 15:30 | CASEMGMT ---
Social Work Note SW updated that pt missed his mom's Friday since he was still at [facility]. SW in to speak with pt. SW asked pt how he is doing. Pt states that he is doing well, is excited that his oxygen is lower. Pt confirms that he missed his mother's Friday. Pt states that [facility] made accommodations though and pt was still able to view the . Pt again states that he is doing well, denied additional needs or concerns at this time. Lexis Bar CLINICAL EDUCATION CONSULTANT, RESIDENCE MANAGER
[2020-12-27 20:50] VITALS: BP 130/86; PULSE 92; RESP 20; TEMP 36.5; O2SAT 91
[2020-12-27] MEDS: Acetaminophen 325 MG Tablet 650 MG PO (20:54)
[2020-12-27] MEDS: Mag Hydrox/Al Hydrox/Simeth 30 ML UDC PO (20:54)
[2020-12-28] VITALS (7 sets, daily range): BP systolic 125–139; BP diastolic 71–92; PULSE 66–100; RESP 18–20; TEMP 36.4–36.8; O2SAT 88–96
[2020-12-28] MEDS: 0.9% Saline Lock 10 ML Syringe IV ×6 (05:42→20:38)
[2020-12-28 07:00] LABS: Anion Gap 7 (5-15); BUN 33 mg/dL (7-18); BUN/Creat Ratio 28.7 RATIO (10-20); Calcium,Total 8.8 mg/dL (8.5-10.1); Chloride 98 mmol/L (98-107); Creatinine, Serum 1.15 mg/dL (0.70-1.30); EST Glomerular Filtration Rate 68 mL/min (>60); Est Glom Filt Rate - Afr Amer 82 mL/min (>60); Estimated Creatinine Clearance 64.04 ml/min; Glucose 130 mg/dL (74-106); Potassium 4.3 mmol/L (3.5-5.1); Sodium Level 135 mmol/L (136-145)
[2020-12-28] MEDS: dexAMETHasone 4 MG Tablet 6 MG PO (07:42)
[2020-12-28] MEDS: Enoxaparin 30 MG/0.3 ML Syringe SC ×2 (07:43→20:36)
--- NOTE | 2020-12-28 17:34 | PCM.PN.HOSP ---
Subjective Subjective Patient reports he is feeling well. We did ambulate him on oxygen and he required 6 L and saturations were just barely 88%. I did discuss with him that we will likely be able to discharge him tomorrow but I would like him to be stable and have his oxygen saturations a bit improved. He does have an ambulatory pulse oximetry monitor at home and will be able to monitor her sats. Objective Data Objective Data Vital Signs: Vital Signs Temp Pulse Resp BP Pulse Ox 97.9 F 100 20 H 128/71 H 96 12/28/20 13:30 12/28/20 13:31 12/28/20 13:30 12/28/20 13:30 12/28/20 13:30 Oxygen Flow Rate (L/min) [ 6 AMBULATING with Oxygen #1] Oxygen Flow Rate (L/min) [At 6 REST with Oxygen] Oxygen Flow Rate (L/min) 6 Oxygen Delivery Method Nasal Cannula Weight: 98.5 kg Body Mass Index (BMI) 33.5 Intake & Output: Intake and Output for Last 24 Hours 12/26/20 12/27/20 12/28/20 23:59 23:59 23:59 Intake Total 115 / 115 150 / 150 100 / 100 Output Total 550 / 550 Balance -435 / -435 150 / 150 100 / 100 Lab / Micro Data Result Diagrams: 12/25/20 05:26 12/28/20 05:50 Labs: Laboratory Results - last 24 hr 12/28/20 05:50: Sodium 135 L, Potassium 4.3, Chloride 98, Carbon Dioxide 30.0, Anion Gap 7, BUN 33 H, Creatinine 1.15, Estim Creat Clear Calc 64.04, Est GFR (MDRD) Af Amer 82, Est GFR (MDRD) Non-Af 68, BUN/Creatinine Ratio 28.7 H, Glucose 130 H, Calcium 8.8 Micro: Microbiology 12/23/20 12:32 Sputum, Expectorated/Coughed Gram Stain - Final 12/23/20 12:32 Sputum, Expectorated/Coughed Respiratory Culture - Final Pseudomonas aeroginosa 12/18/20 18:00 Urine, Clean Catch Legionella Antigen - Final 12/18/20 18:00 Urine, Clean Catch Streptococcus pneumoniae Antigen (M - Final 12/18/20 18:00 Nasal Secretion SARS-CoV-2 Antigen (Rapid) - Final 12/18/20 15:44 Mucosa - Nasopharyngeal Respiratory Panel (PCR) - Final Physical Exam Const alert, oriented x3 and no apparent distress Constitutional Narrative: Obese, upper middle-aged white male walking around his room, appears comfortable, nontoxic, currently on regular nasal cannula at 5 L Exam Limitations: no limitations Nutritional Appearance: obese HEENT head/scalp atraumatic and moist oral mucous membranes HEENT Narrative: No thrush Head and Scalp: normocephalic Resp normal respiratory effort, no retractions, no use of accessory muscles and clear to auscultation bilaterally Resp Narrative: Diminished but clear Auscultation: crackles; Negative for rales, rhonchi or wheezes Cardio regular rate, regular rhythm, S1 normal heart sound, S2 normal heart sound, no murmurs, no rub, no gallops, no clicks and no JVD Cardio Narrative: ia GI normal to inspection, nondistended, normoactive bowel sounds, soft to palpation, non-tender and non-distended Extremity normal to inspection and no clubbing, cyanosis or edema Neuro oriented x3 and moves all extremities Sensorium / Orientation: awake and alert Speech: speech normal Assessment & Plan Assessment/Plan (1) Acute respiratory failure with hypoxia: (2) COVID: (3) Hyponatremia: PLAN: Acute hypoxic respiratory failure secondary to COVID-19 pneumonia -Patient remains on air Vo with an FiO2 of 44% and a flow of 50 L/min -Wean as oxygenation allows--> discussed with respiratory and will try heated high flow nasal cannula -Continue Decadron day -Patient has completed remdesivir therapy -Continue prone positioning -Continue incentive spirometry/Acapella -Pulmonary following-appreciate input -Discussed with patient that once he was on 6 L or less with ambulation we will be able to discuss discharge -Patient does have a home pulse oximetry monitor Pseudomonal pneumonia superinfection -Patient has had no issues with Zosyn and will continue -Day 4 of 7--> this is a pansensitive organism -If patient is able to be discharged prior to completing antibiotics would discharge with Levaquin HARSHA -Serum creatinine is improved and down from 1.35-1.15 -Continue to hold diuresis -Repeat BMP in a.m. Hyponatremia -Suspect related to COVID-19 infection -Overall relatively stable -Continue to monitor Obesity -BMI is 32.1 -Recommend weight loss -Complicates overall treatment, prognosis, outcomes DVT prophylaxis -Continue prophylactic dose anticoagulation Charges/Coding Visit Charges Inpatient E&M: 88508 Subs Hosp L2
[2020-12-28] MEDS: Acetaminophen 325 MG Tablet 650 MG PO (20:36)
[2020-12-28] MEDS: Mag Hydrox/Al Hydrox/Simeth 30 ML UDC PO (20:36)
[2020-12-29 02:38] VITALS: BP 138/88; PULSE 78; RESP 18; TEMP 36.6; O2SAT 93
[2020-12-29] MEDS: 0.9% Saline Lock 10 ML Syringe IV (05:55)
[2020-12-29 08:00] VITALS: RESP 18
[2020-12-29 08:13] VITALS: BP 118/83; PULSE 75; RESP 18; TEMP 36.4; O2SAT 93
[2020-12-29 08:18] VITALS: O2SAT 89; O2SAT 93
[2020-12-29 08:40] LABS: Anion Gap 6 (5-15); BUN 32 mg/dL (7-18); BUN/Creat Ratio 30.2 RATIO (10-20); Calcium,Total 8.5 mg/dL (8.5-10.1); Chloride 102 mmol/L (98-107); Creatinine, Serum 1.06 mg/dL (0.70-1.30); EST Glomerular Filtration Rate 75 mL/min (>60); Est Glom Filt Rate - Afr Amer 90 mL/min (>60); Estimated Creatinine Clearance 69.48 ml/min; Glucose 105 mg/dL (74-106); Potassium 4.4 mmol/L (3.5-5.1); Sodium Level 136 mmol/L (136-145)
[2020-12-29] MEDS: dexAMETHasone 4 MG Tablet 6 MG PO (09:39)
[2020-12-29] MEDS: Enoxaparin 30 MG/0.3 ML Syringe SC (09:39)
--- NOTE | 2020-12-29 11:32 | DS.PCM_ITS ---
Providers Date of Admission: 12/18/20 Primary Care Physician: Kya Primary Care Phys Consultations 12/22/20 08:07 Consult: Instrumentation Supervisor / Pulmonary Medicine Routine Consulting Provider: Don Ontiveros Reason for Consult: resp failure/covid EMERGENT Consult: No MD Notified: Yes Date Notified: 12/22/20 Time Notified: 08:17 Method of Notification: Verbal Reason For Visit: RESP FAILURE/COVID19 Diagnosis Discharge Diagnosis (1) Acute respiratory failure with hypoxia: Status: Acute Code(s): J96.01 - Acute respiratory failure with hypoxia (2) COVID: Status: Acute Code(s): U07.1 - COVID-19 (3) Hyponatremia: Status: Acute Code(s): E87.1 - Hypo-osmolality and hyponatremia Medications at Discharge Home Medications levofloxacin 750 mg PO DAILY #3 tab 12/29/20 Hospital Course Operations None Procedures None Summary of Care Provided Minutes Spent on Discharge: 36 Hospital Course: Mr. Meza is a 65-year-old white male who presented to the emergency department at [facility] on 12/18/2020 with a chief complaint of progressive shortness of breath that had been ongoing for 10 days prior to admission. He denied any fever or chills and had loss of taste but reported that his smell was intact. He complained of a cough which was nonproductive and had some loose stools. He tested positive for to Covid 2 days prior to admission. He was admitted to the general medical floor as he was found to be hypoxic. He was started on Decadron and remdesivir and completed courses of both of these prior to discharge. A D-dimer elevation was noted on admission and a CTA of his chest was performed and showed no pulmonary embolus but bilateral patchy infiltrates that were consistent with COVID-19 infection. He was intermittently diuresed to maintain euvolemia. During the course of his hospitalization he progressively required more oxygen and on 12/22/2020 pulmonology was consulted. A sputum culture was obtained at that time and pulmonary had no significant additional input other than that continue what we were performing which included incentive spirometry, Acapella, prone positioning, remdesivir, and Decadron. A sputum culture resulted positive for Pseudomonas and he was started on IV antibiotics with Zosyn. Sensitivities were identified and it was pansensitive organism. He had completed 4 days of IV antibiotics prior to discharge and was converted to oral Levaquin at discharge to complete 3 more days which completed a 7-day course. At discharge she was able to maintain his oxygen saturations with sleep 3 L both at rest and ambulation. He was discharged home with supplemental oxygen and instructed to continue wearing this until told otherwise by physician. He was instructed to follow-up with his PCP in 2 to 4 weeks and recommended pulmonary follow-up within 3 months. The patient does have significant history of tobacco use in the form of cigars and we did recommend cessation. Discharge diagnoses: Acute hypoxic respiratory failure COVID-19 pneumonia Pseudomonal pneumonia HARSHA-resolved Hyponatremia Obesity Physical Exam Const alert, oriented x3 and no apparent distress Constitutional Narrative: Obese, upper middle-aged white male walking around his room, appears comfortable, nontoxic, currently on regular nasal cannula at 2 L General Appearance: cooperative, comfortable, well kempt and well developed Orientation / Consciousness: awake Exam Limitations: no limitations Nutritional Appearance: obese HEENT normocephalic, head/scalp atraumatic, hearing grossly normal bilaterally and moist oral mucous membranes HEENT Narrative: No thrush Eyes PERRL, EOMs intact bilaterally and conjunctivae normal Neck no lymphadenopathy, supple and no JVD Neck Narrative: Trachea midline, no thyroid enlargement Resp normal respiratory effort, no retractions, no use of accessory muscles and clear to auscultation bilaterally Resp Narrative: Diminished but clear Auscultation: crackles; Negative for rales, rhonchi or wheezes Cardio regular rate, regular rhythm, S1 normal heart sound, S2 normal heart sound, no murmurs, no rub, no gallops, no clicks and no JVD Cardio Narrative: ia GI normal to inspection, nondistended, normoactive bowel sounds, soft to palpation, non-tender and non-distended Extremity normal to inspection and no clubbing, cyanosis or edema Skin no rashes or lesions noted, no wounds, skin turgor normal and no jaundice Neuro oriented x3, CN's II-XII intact bilaterally, moves all extremities and no focal motor deficits Neuro Narrative: Walking around room independently without any gait abnormalities Sensorium / Orientation: awake and alert Speech: speech normal Motor Exam: strength 5/5 throughout Psych affect normal Weight / BMI Weight Weight: 98.3 kg Body Mass Index (BMI) 33.5 ABG / Lab / Microbiology Data Result Diagrams: 12/25/20 05:26 12/29/20 07:46 Laboratory: Laboratory Results - last 24 hr 12/29/20 07:46: Sodium 136, Potassium 4.4, Chloride 102, Carbon Dioxide 28.0, Anion Gap 6, BUN 32 H, Creatinine 1.06, Estim Creat Clear Calc 69.48, Est GFR (MDRD) Af Amer 90, Est GFR (MDRD) Non-Af 75, BUN/Creatinine Ratio 30.2 H, Glucose 105, Calcium 8.5 Microbiology: Microbiology 12/23/20 12:32 Sputum, Expectorated/Coughed Gram Stain - Final 12/23/20 12:32 Sputum, Expectorated/Coughed Respiratory Culture - Final Pseudomonas aeroginosa 12/18/20 18:00 Urine, Clean Catch Legionella Antigen - Final 12/18/20 18:00 Urine, Clean Catch Streptococcus pneumoniae Antigen (M - Final 12/18/20 18:00 Nasal Secretion SARS-CoV-2 Antigen (Rapid) - Final 12/18/20 15:44 Mucosa - Nasopharyngeal Respiratory Panel (PCR) - Final D/C Instructions Discharge Diet: No restrictions Discharge Activity: Return to Normal Activity Return to work on: 01/01/21 May resume sexual activity in: No Restrictions Meaningful Use Info Meaningful Use Diagnoses (Choose all that apply): None applicable Discharge Plan Admission Admit Date/Time: 12/18/20 11:56 Primary Reason for Your Visit: Acute hypoxic respiratory failure secondary to COVID-19 pneumonia Attending Provider: Leora Calhoun Primary Care Provider: Care Physician,No Primary Consulting Providers: Don Ontiveros Instructions Additional Instructions / Restrictions: -Quarantine has been completed today 12/29/2020 -Please continue to spot check your pulse oximetry with your home pulse oximetry unit periodically -Please continue oxygen until discontinued by physician -Recommend follow-up with the PCP listed below if you do not have another PCP in mind Discharge Orders/Prescriptions Prescriptions: New levofloxacin 750 mg tablet 750 mg PO DAILY Qty: 3 RF: 0 Referrals / Follow Up: Don Ontiveros MD [STAFF PHYSICIAN] - Within 3 Months Ramos Tan MD [STAFF PHYSICIAN] - Within 2 Weeks (Hospital follow up for PCP) Care Physician,No Primary [Primary Care Provider] - Disposition Disposition (needs filled in before D/C Order can be placed): Home, Self Care Charges/Coding Visit Charges Inpatient E&M: 16417 Disch Hosp
--- NOTE | 2020-12-29 11:43 | PCM.DC ---
Discharge Instructions Diet Discharge Diet: No restrictions Activity Discharge Activity: Return to Normal Activity Return to work on:: 01/01/21 May resume sexual activity in: No Restrictions Follow Up Care Test Results: Test results from this visit will be discussed in further detail at your follow-up appointment, if applicable. Discharge Plan Admission Admit Date/Time: 12/18/20 11:56 Primary Reason for Your Visit: Acute hypoxic respiratory failure secondary to COVID-19 pneumonia Attending Provider: Leora Calhoun Primary Care Provider: Care Physician,No Primary Consulting Providers: Don Ontiveros Instructions Additional Instructions / Restrictions: -Quarantine has been completed today 12/29/2020 -Please continue to spot check your pulse oximetry with your home pulse oximetry unit periodically -Please continue oxygen until discontinued by physician -Recommend follow-up with the PCP listed below if you do not have another PCP in mind Discharge Orders/Prescriptions Prescriptions: New levofloxacin 750 mg tablet 750 mg PO DAILY Qty: 3 RF: 0 Referrals / Follow Up: Don Ontiveros MD [STAFF PHYSICIAN] - Within 3 Months Ramos Tan MD [STAFF PHYSICIAN] - Within 2 Weeks (Hospital follow up for PCP) Care Physician,No Primary [Primary Care Provider] - Disposition Disposition (needs filled in before D/C Order can be placed): Home, Self Care
[2020-12-29 13:33] VITALS: BP 134/65; PULSE 98; RESP 18; TEMP 36.8; O2SAT 86; O2SAT 9
--- NOTE | 2020-12-29 13:37 | CASEMGMT ---
Pt qualified for home O2, referral faxed to [facility] [place]. TC to [place] to make aware that referral was faxed and portable tank taken from stock.
--- NOTE | 2021-01-01 16:57 | CASEMGMT ---
SAMANTHA DC F/u Call: DC Date: 12/29/20 DC Diagnosis: Covid DC Disposition: Home Lace/Strata: 10/09 Called patient listed number. Patient answered, this group underwriter introduced self and role. Patient states he is doing well and denies any issues, concerns or questions with [facility], medications or f/u. S. SAMANTHA Scruggs
== END 2020-12-29 13:45 | disposition home or self-care (01) | DRG 177 ==
LOC: ED 10:53 → MS3 12-19 09:11
PROVIDERS: Internal Medicine Critical Care Medicine; Admitting Provider Internal Medicine; Emergency Provider Emergency Medicine; Visit Provider Internal Medicine
DX: U07.1 COVID-19 (principal); J12.82 Pneumonia due to coronavirus disease 2019; J96.01 Acute respiratory failure with hypoxia; J15.1 Pneumonia due to Pseudomonas; N17.9 Acute kidney failure, unspecified; E87.1 Hypo-osmolality and hyponatremia; R79.89 Other specified abnormal findings of blood chemistry; F17.290 Nicotine dependence, other tobacco product, uncomplicated; E66.9 Obesity, unspecified; Z68.32 Body mass index [BMI] 32.0-32.9, adult; Z88.0 Allergy status to penicillin
CPT/HCPCS: 36415; 71045; 71275; 80048; 80053; 83880; 84145; 85025; 85379; 87070; 87077; 87184; 87186; 87205; 87426; 87449; 87633; 93005; 94002; 94660; 97802; 99251; 99284; J7050; Q9967; A4216; G0463; J1940

== ENCOUNTER → 2024-01-27 | Outpatient (CLI) | payer MEDICARE, SELFPAY ==
[2024-01-27 12:13] LABS: Absolute Lymphocyte Count 1.38 X10^3/uL (0.83-4.51); Absolute Neutrophil Count 2.2 X10^3/uL (2.0-7.7); Basophil# 0.03 X10^3/uL; Basophil% 0.7 % (0-1); Eosinophils% 2.5 % (0-5); Hematocrit 44.3 % (40-54); Hemoglobin 13.9 g/dL (13.0-16.5); Lymphocyte # 1.38 X10^3/ul (0.83-4.51); Lymphocyte % 34.2 % (19-41); Mean Corp Hgb Conc 31.4 g/dL (32-36); Mean Corpuscular Hgb 32.2 pg (27.0-32.0); Mean Corpuscular Volume 102.5 fL (80-94); Mean Platelet Vol. 10.8 fl (6.2-12.0); Monocyte% 7.4 % (0-10); NRBC Flagged by Analyzer 0 % (0-5); Neutrophil # 2.21 X10^3/uL (2.7-7.7); Platelet Count 157 K/mm3 (150-450); RBC Distribution Width CV 14.8 % (11.6-14.6); RBC Distribution Width SD 56.9 fl (35.1-43.9); Red Blood Count 4.32 M/mm3 (4.6-6.2)
[2024-01-27 12:25] LABS: ALB/GLOB Ratio 1.4 RATIO (0.9-2.4); AST(SGOT) 26 U/L (15-37); Alanine Aminotransfer ALT/SGPT 24 U/L (16-61); Albumin, Serum 3.8 g/dL (3.2-5.0); Alkaline Phosphatase 60 U/L (45-117); Anion Gap 6 (5-15); BUN 21 mg/dL (7-18); Calcium,Total 8.8 mg/dL (8.5-10.1); Chloride 111 mmol/L (98-107); Cholesterol 184 mg/dL (200); Creatinine, Serum 1.05 mg/dL (0.70-1.30); EST Glomerular Filtration Rate 75 mL/min (>60); Est Glom Filt Rate - Afr Amer 90 mL/min (>60); Globulin 2.7 g/dL (2.2-4.2); Glucose 102 mg/dL (74-106); High Density Lipoprotein 50 mg/dL; Potassium 4.3 mmol/L (3.5-5.1); Protein, Total 6.5 g/dL (6.4-8.2); Sodium Level 142 mmol/L (136-145); Triglycerides 77 mg/dL; Very Low Density Lipoprotein 15 mg/dL (5-40)
[2024-01-27 12:58] LABS: Hemoglobin A1c 5.2 % (3.8-5.6)
[2024-01-27 16:32] LABS: Vitamin B12 262 pg/mL (211-911)
[2024-01-27 16:49] LABS: Platelet Count 159 K/mm3 (150-450); RET-HE 35.3 pg (30-35); Reticulocyte Count 1.51 % (0.5-1.5)
== END | disposition home or self-care (01) ==
LOC: BIMLAB 08:52
PROVIDERS: PCP Internal Medicine; Visit Provider Internal Medicine
DX: D75.89 Other specified diseases of blood and blood-forming organs (principal); R73.03 Prediabetes; Z13.6 Encounter for screening for cardiovascular disorders
CPT/HCPCS: 36415; 80053; 80061; 82607; 82746; 83036; 85025; 85045